=== PATIENT | male | born 1955 ===

== ENCOUNTER 2021-10-24 08:27 | Emergency (ER) | payer SELFPAY ==
[2021-10-24] MEDS ORDERED: ALBUTEROL 2.5 MG/3 ML NEBU IH ONE (09:00)
--- NOTE | 2021-10-24 11:15 | Emergency Department Report ---
HPI - General Chief Complaint: Dyspnea/Respdistress Time Seen by Provider: 10/24/21 11:04 - HPI HPI: 66-year-old male comes in complaining of shortness of breath. Has been having shortness of breath ever since he got infected with COVID about a year ago. He has been put on albuterol nebulizers and inhalers and has used about 5 episodes since it started getting worse yesterday. Reports a green sputum productive cough. He denies fevers vomiting diarrhea chills chest pain or any other associated symptoms. The albuterol MDI and nebulizers are helping but not enough. Exertion makes it worse. He does not use oxygen at home. He otherwise has a history for borderline high blood pressure and he takes no medicines. ED Past Medical Hx - Past Medical History Previous Medical History?: No Hx Hypertension: Yes - Surgical History Past Surgical History?: No - Social History Smoking Status: Never Smoker - Medications Home Medications: Home Medications Medication Instructions Recorded Confirmed Last Taken Type Azithromycin [Zithromax Z-JONNY] 250 mg PO DAILY #6 tab 10/24/21 Unknown Rx predniSONE [Deltasone] 50 mg PO QDAY 5 Days #5 tab 10/24/21 Unknown Rx ED Review of Systems ROS: Stated complaint: AMANDA X 12HRS Other details as noted in HPI Other: Review of Systems: Constitutional: Negative for chills, diaphoresis and fever. HENT: Negative for sore throat. Eyes: Negative for discharge and redness. Respiratory: Negative for cough, choking and shortness of breath. Cardiovascular:Negaitive for chest pain. Negative for palpitations and leg swelling. Gastrointestinal: Negative for abdominal pain, constipation, diarrhea, nausea and vomiting. Genitourinary: Negative for dysuria and hematuria. Musculoskeletal: Negative for arthralgias, back pain, myalgias and neck pain. Skin: Negative for rash and wound. Neurological: Negative for dizziness and headaches. Psychiatric/Behavioral: Negative for suicidal ideas. All other systems reviewed and are negative. Physical Exam - Physical Exam Vital Signs: Vital Signs 10/24/21 10/24/21 10/24/21 08:48 09:54 10:50 Temperature 99.7 F H 98.9 F Pulse Rate 111 H 80 Pulse Rate [ 98 H Bilateral] Respiratory 26 H 18 Rate Respiratory 18 Rate [Bilateral ] Blood Pressure 114/60 Blood Pressure 146/80 [Right] O2 Sat by Pulse 90 99 Oximetry Physical Exam: Physical Exam: Constitutional: AAOX3. No acute distress. No diaphoresis. He is saturating at 90% on room air. 95% on 3 L nasal cannula. HENT: Normocephalic. Pupils equal and reactive. No throat edema or erythema. Neck: No neck rigidity or tenderness. Cardiovascular: Heart sounds: No murmur. Normal rate and regular rhythm. Pulses: Intact distal pulses. Lungs: The patient has a prolonged expiratory phase with wheezing. Chest wall: No tenderness. Abdominal: No distension. No mass/pulsatile mass. No abdominal tenderness, guarding nor rebound. Musculoskeletal: Normal range of motion. No edema, No calf TTP. Skin: Warm and dry. Neurological: Alert and oriented to person, place, and time. Psychiatric: Mood and affect normal. Normal cognition and memory. Normal judgement. ED Course Vital Signs 10/24/21 10/24/21 10/24/21 08:48 09:54 10:50 Temperature 99.7 F H 98.9 F Pulse Rate 111 H 80 Pulse Rate [ 98 H Bilateral] Respiratory 26 H 18 Rate Respiratory 18 Rate [Bilateral ] Blood Pressure 114/60 Blood Pressure 146/80 [Right] O2 Sat by Pulse 90 99 Oximetry - Reevaluation(s) Reevaluation #1: 10/24/21 14:15 EKG done at 1054 shows a rate of 72, normal. The rhythm is sinus rhythm, normal. There are no ST or T wave abnormalities. Reevaluation #2: 10/24/21 15:47 We gave the patient 125 mg Solu-Medrol as well as 1 DuoNeb. He felt better afterwards however he still wheezing and saturating 92% on room air. I think he is stable for discharge but I will put him on prednisone for 5 days and he will continue to use his nebulizers every 4 hours as opposed to every 6. He will return if any other issues arise. ED Medical Decision Making - Lab Data Result diagrams: 10/24/21 11:16 10/24/21 11:16 Critical care attestation.: If time is entered above; I have spent that time in minutes in the direct care of this critically ill patient, excluding procedure time. ED Disposition Clinical Impression: Acute bronchitis Disposition: 01 HOME / SELF CARE / HOMELESS Is pt being admited?: No Does the pt Need Aspirin: No Condition: Stable Instructions: Acute Bronchitis (ED), Acute Bronchitis, Adult, [id number] Prescriptions: predniSONE [Deltasone] 50 mg PO QDAY 5 Days #5 tab Azithromycin [Zithromax Z-JONNY] 250 mg PO DAILY #6 tab Referrals: PRIMARY CARE,MD [Primary Care Provider] - 3-5 Days Time of Disposition: 15:50 Print Language: PAK[place]ANI
[2021-10-24 11:33] LABS: Basophils # (Auto) 0.1 K/mm3 (0.0-0.1); Basophils % (Auto) 1.2 % (0.0-1.8); Eosinophils # (Auto) 0.2 K/mm3 (0.0-0.4); Eosinophils % (Auto) 1.6 % (0.0-4.3); Hematocrit 47.3 % (35.5-45.6); Hemoglobin 15.7 gm/dl (11.8-15.2); Lymphocytes # (Auto) 2.5 K/mm3 (1.2-5.4); Lymphocytes % (Auto) 26.6 % (13.4-35.0); Mean Corpuscular HGB Conc 33 % (32-34); Mean Corpuscular Volume 88 fl (84-94); Monocytes # (Auto) 0.6 K/mm3 (0.0-0.8); Monocytes % (Auto) 6.8 % (0.0-7.3); Platelet Count 265 K/mm3 (140-440); Red Blood Count 5.35 M/mm3 (3.65-5.03); Red Cell Distribution Width 14.5 % (13.2-15.2)
--- NOTE | 2021-10-24 11:33 | XRay Report ---
CHEST 1 VIEW INDICATION: sob. COMPARISON: None FINDINGS: SUPPORT DEVICES: None. HEART: Within normal limits. LUNGS/PLEURA: No acute air space or interstitial disease. ADDITIONAL FINDINGS: None. IMPRESSION: 1. No acute findings. Signer Name: Williams Finch MD Signed: 10/24/2021 11:28 AM Workstation Name: [id number]
[2021-10-24 11:46] LABS: INR 0.95 (0.87-1.13)
[2021-10-24 11:47] LABS: Partial Thromboplastin Time 25.5 Sec. (24.2-36.6)
[2021-10-24 11:52] LABS: Alanine Aminotransferase 17 units/L (7-56); Albumin 4.7 g/dL (3.9-5); Blood Urea Nitrogen 17 mg/dL (9-20); Calcium 9.2 mg/dL (8.4-10.2); Hemolysis Index 10
[2021-10-24 11:53] LABS: BUN/Creatinine Ratio 28
[2021-10-24] MEDS ORDERED: methylPREDNISolone Sod Suc 125 MG in SODIUM CHLORIDE 0.9% 100 ML IV ONE (14:14)
[2021-10-24] MEDS ORDERED: IPRATROPIUM/ALBUTEROL SULFATE 3 ML AMPUL.NEB IH ONE (14:14)
[2021-10-24 17:49] VITALS: BP 120/65
== END 2021-10-24 17:46 | disposition home or self-care (01) ==
LOC: ED 08:27
DX: J20.9 Acute bronchitis, unspecified (principal); I10 Essential (primary) hypertension
CPT/HCPCS: 36415; 71045; 80053; 84484; 85025; 85610; 85730; 93005; 94640; 96365; 99284; J2930; 94644

== ENCOUNTER 2021-11-03 15:15 | Inpatient (IN) | payer SELFPAY ==
[2021-11-03] MEDS ORDERED: IPRATROPIUM 0.02% NEBU 2.5 ML IH ONE (15:45)
[2021-11-03] MEDS ORDERED: ALBUTEROL 2.5 MG/3 ML NEBU IH ONE (15:45)
[2021-11-03] MEDS: IPRATROPIUM 0.02% NEBU 2.5 ML IH ONE ×2 (15:55→17:35)
[2021-11-03] MEDS: ALBUTEROL 2.5 MG/3 ML NEBU IH ONE ×2 (15:56→17:35)
[2021-11-03] MEDS ORDERED: LORazepam 2 MG/ML VIAL IV ONE (16:04)
[2021-11-03] MEDS ORDERED: MAGNESIUM SULFATE 2 GM/50 ML BAG IV ONE (16:04)
[2021-11-03] MEDS ORDERED: methylPREDNISolone Sod Succinate 125 MG/2 ML INJ IV ONE (16:04)
--- NOTE | 2021-11-03 16:13 | Emergency Department Report ---
ED Shortness of Breath HPI - General Chief Complaint: Dyspnea/Respdistress Stated Complaint: ASTHMA ATTACK Time Seen by Provider: 11/03/21 16:00 Source: patient, family Mode of arrival: Ambulatory Limitations: No Limitations - History of Present Illness Initial Comments: 66-year-old male with a history of asthma who presents with difficulty breathing that been going on for the last 3 days progressively getting worse. He says he has use his home rescue medication which minimal improvement. Patient denies any productive cough. No fever or chills reported no chest pain or palpitation noted. No other modifying or associated factors reported. MD Complaint: shortness of breath, "asthma attack" - Related Data Previous Rx's Medication Instructions Recorded Last Taken Type Azithromycin [Zithromax Z-JONNY] 250 mg PO DAILY #6 tab 10/24/21 Unknown Rx predniSONE [Deltasone] 50 mg PO QDAY 5 Days #5 tab 10/24/21 Unknown Rx Allergies Allergy/AdvReac Type Severity Reaction Status Date / Time No Known Allergies Allergy Unverified 10/24/21 14:39 ED Review of Systems ROS: Stated complaint: ASTHMA ATTACK Other details as noted in HPI Comment: All other systems reviewed and negative Respiratory: shortness of breath, SOB with exertion, SOB at rest ED Past Medical Hx - Past Medical History Previous Medical History?: Yes Hx Hypertension: Yes Hx Asthma: Yes - Surgical History Past Surgical History?: No - Social History Smoking Status: Never Smoker - Medications Home Medications: Home Medications Medication Instructions Recorded Confirmed Last Taken Type Azithromycin [Zithromax Z-JONNY] 250 mg PO DAILY #6 tab 10/24/21 Unknown Rx predniSONE [Deltasone] 50 mg PO QDAY 5 Days #5 tab 10/24/21 Unknown Rx ED Physical Exam - General Limitations: No Limitations General appearance: alert, anxious, in distress (Due to shortness of breath) - Head Head exam: Present: normal inspection - Eye Eye exam: Present: normal appearance Pupils: Present: normal accommodation - ENT ENT exam: Present: normal exam, normal orophraynx, mucous membranes moist - Neck Neck exam: Present: normal inspection. Absent: tenderness - Respiratory Respiratory exam: Present: normal lung sounds bilaterally, respiratory distress, wheezes, accessory muscle use - Cardiovascular Cardiovascular Exam: Present: tachycardia, normal heart sounds - GI/Abdominal GI/Abdominal exam: Present: soft, normal bowel sounds. Absent: distended, tenderness - Extremities Exam Extremities exam: Present: normal inspection. Absent: tenderness, normal capillary refill, pedal edema - Back Exam Back exam: Absent: tenderness - Neurological Exam Neurological exam: Present: alert, oriented X3 - Psychiatric Psychiatric exam: Present: normal affect, normal mood - Skin Skin exam: Present: warm, normal color ED Course Vital Signs 11/03/21 11/03/21 11/03/21 15:21 15:55 17:10 Temperature 97.5 F L Pulse Rate 139 H 105 H Pulse Rate [ 139 H Anterior Bilateral Throughout] Respiratory 26 H 36 H Rate Respiratory 31 H Rate [Anterior Bilateral Throughout] Blood Pressure Blood Pressure 121/71 [Right] O2 Sat by Pulse 88 94 Oximetry 11/03/21 11/03/21 11/03/21 17:15 17:31 17:35 Temperature Pulse Rate 137 H 131 H Pulse Rate [ 128 H Anterior Bilateral Throughout] Respiratory 35 H 43 H Rate Respiratory 30 H Rate [Anterior Bilateral Throughout] Blood Pressure 90/61 103/64 Blood Pressure [Right] O2 Sat by Pulse 94 96 Oximetry 11/03/21 11/03/21 11/03/21 17:45 18:01 18:15 Temperature Pulse Rate 126 H 134 H 135 H Pulse Rate [ Anterior Bilateral Throughout] Respiratory 43 H 24 29 H Rate Respiratory Rate [Anterior Bilateral Throughout] Blood Pressure 109/63 112/67 114/60 Blood Pressure [Right] O2 Sat by Pulse 97 94 94 Oximetry 11/03/21 11/03/21 11/03/21 18:19 18:31 18:45 Temperature Pulse Rate 134 H 139 H 137 H Pulse Rate [ Anterior Bilateral Throughout] Respiratory 30 H 30 H Rate Respiratory Rate [Anterior Bilateral Throughout] Blood Pressure 114/60 106/61 Blood Pressure [Right] O2 Sat by Pulse 94 94 Oximetry 11/03/21 11/03/21 11/03/21 19:01 19:15 19:31 Temperature Pulse Rate 134 H 129 H 127 H Pulse Rate [ Anterior Bilateral Throughout] Respiratory 27 H 26 H 19 Rate Respiratory Rate [Anterior Bilateral Throughout] Blood Pressure 98/57 91/52 88/55 Blood Pressure [Right] O2 Sat by Pulse 94 94 93 Oximetry 11/03/21 11/03/21 11/03/21 19:46 20:01 20:15 Temperature Pulse Rate 127 H 121 H 120 H Pulse Rate [ Anterior Bilateral Throughout] Respiratory 26 H 29 H 30 H Rate Respiratory Rate [Anterior Bilateral Throughout] Blood Pressure 97/54 90/60 97/54 Blood Pressure [Right] O2 Sat by Pulse 94 95 94 Oximetry 11/03/21 11/03/21 11/03/21 20:21 20:31 20:45 Temperature Pulse Rate 116 H 115 H Pulse Rate [ Anterior Bilateral Throughout] Respiratory 33 H 19 Rate Respiratory Rate [Anterior Bilateral Throughout] Blood Pressure 84/34 84/34 Blood Pressure [Right] O2 Sat by Pulse 93 94 95 Oximetry 11/03/21 11/03/21 20:59 21:01 Temperature Pulse Rate 114 H Pulse Rate [ Anterior Bilateral Throughout] Respiratory 30 H Rate Respiratory Rate [Anterior Bilateral Throughout] Blood Pressure 109/64 Blood Pressure 109/64 [Right] O2 Sat by Pulse 95 Oximetry - Reevaluation(s) Reevaluation #1: 11/03/21 16:09 Patient presented with difficulty breathing for the last 3 days progressively getting worse with history of asthma--noted with diffuse expiratory wheezing, anxiety/panic attack, tachycardia and tachypneic --differential diagnosis could include but not limited to asthma exacerbation, myocardial infarction, pulmonary embolism, pneumonia, pneumothorax, COVID-19, and any other systemic infection or electrolyte derangement. In order to rule or the above out we will go ahead and order routine dyspnea work-up including chest x-ray, cardiac enzyme troponin, CBC, CMP. And in the meantime we will go ahead and give DuoNeb breathing treatment, Solu-Medrol 125 mg, magnesium sulfate 2 g, Ativan 1 mg IV x1 for anxiety and will continue to monitor patient. Reevaluation #2: 11/03/21 21:50 Noted with unremarkable blood gas with normal pH but elevated D-dimer so we will go ahead and order CT chest to rule out pulmonary embolism. Also noted with incremental increase in lactic acid at 1 from 2.0-3.4 but no source of infection at this point. We will give 1 L IV fluids for hydration and continue to monitor patient Reevaluation #3: 11/03/21 21:51 Patient continued to be tachycardic likely as a result of the albuterol side effect and still needing oxygen so we will go ahead and consider admission. Dr. Carter consulted who accept pt for further evaluation and treatment. 11/03/21 21:52 Patient also have slightly elevated T bili with normal LFT. This is unlikely biliary tree obstruction - Consultations Consultation #1: 11/03/21 21:53 Dr. Carter consulted who accept pt for further evaluation and treatment while waiting for result of CTA chest-- ED Medical Decision Making - Lab Data Result diagrams: 11/03/21 16:45 11/03/21 16:45 - EKG Data -: EKG Interpreted by Me EKG shows normal: sinus rhythm Rate: tachycardia - EKG Data 11/03/21 16:13 Initial EKG noted with sinus tachycardia at a rate of 137 bpm, normal QTC with no obvious ST elevation or depression in this abnormal ECG. - Medical Decision Making See progress notes for details - Differential Diagnosis See previous notes for details Critical Care Time: Yes (60 minutes) Critical care time in (mins) excluding proc time.: 60 Critical care attestation.: If time is entered above; I have spent that time in minutes in the direct care of this critically ill patient, excluding procedure time. This patient presents with acute tachycardia and tachypneic with diffuse large wheezing and due to high probability of clinically significant, life threatening deterioration, this patient required my highest level of preparedness to intervene emergently and I personally spent this critical care time directly and personally managing this patient. This critical care time included obtaining a history; examining this patient; pulse oximetry ; ordering and review of studies ; arranging urgent treatment with development of a management plan ; evaluation of patient's response to treatment ; frequent reassessment ; and, discussion with other providers. This critical care time was performed to assess and manage the high probability of imminent, life-threatening deterioration that could result in multiple organ damage if not done in a timely fashion. Critical Care Time: 60 ED Disposition Clinical Impression: Asthma exacerbation Qualifiers: Asthma severity: severe Asthma persistence: unspecified Qualified Code(s): J45.901 - Unspecified asthma with (acute) exacerbation Disposition: 09 ADMITTED INPATIENT Is pt being admited?: Yes Does the pt Need Aspirin: No Condition: Serious Time of Disposition: 21:53 (Dr Carter consulted who accept pt)
--- NOTE | 2021-11-03 16:39 | XRay Report ---
XR chest 1V ap INDICATION / CLINICAL INFORMATION: Dyspnea COMPARISON: Oct 24 2021 FINDINGS: SUPPORT DEVICES: None. HEART / MEDIASTINUM: No significant abnormality. LUNGS / PLEURA: Lungs are clear. Costophrenic sulci are sharp. No pneumothorax. ADDITIONAL FINDINGS: No significant additional findings. IMPRESSION: 1. No acute findings. Signer Name: Bhavin Dewey MD Signed: 11/03/2021 4:35 PM Workstation Name: [id number]
[2021-11-03] MEDS ORDERED: SODIUM CHLORIDE 0.9% 1000 ML 1,000 ML IV ONE (17:17)
[2021-11-03] MEDS ORDERED: SODIUM CHLORIDE 0.9% 1000 ML 1,000 ML ONE (17:19)
[2021-11-03 17:30] LABS: Basophils # (Auto) 0.1 K/mm3 (0.0-0.1); Basophils % (Auto) 0.5 % (0.0-1.8); Eosinophils % (Auto) 0.1 % (0.0-4.3); Hemoglobin 16.8 gm/dl (11.8-15.2); Lymphocytes # (Auto) 1.7 K/mm3 (1.2-5.4); Lymphocytes % (Auto) 10.9 % (13.4-35.0); Mean Corpuscular HGB Conc 34 % (32-34); Mean Corpuscular Volume 88 fl (84-94); Monocytes # (Auto) 1.8 K/mm3 (0.0-0.8); Monocytes % (Auto) 11.6 % (0.0-7.3); Platelet Count 249 K/mm3 (140-440); Red Blood Count 5.68 M/mm3 (3.65-5.03); Red Cell Distribution Width 14.3 % (13.2-15.2)
[2021-11-03 17:35] LABS: Alanine Aminotransferase 24 units/L (7-56); Albumin 4.4 g/dL (3.9-5); BUN/Creatinine Ratio 23; Blood Urea Nitrogen 21 mg/dL (9-20); Calcium 9.3 mg/dL (8.4-10.2); Hemolysis Index 6
[2021-11-03 17:38] LABS: ABG Base Excess -2.8 mmol/L (-2.0-3.0); ABG HCO3 22.5 mmol/L (20.0-26.0); ABG Methemoglobin 0.7 % (0.0-1.5); ABG Oxygen Saturation 98.9 % (95.0-99.0); ABG PH 7.357 pH Units (7.350-7.450); ABG PO2 161.9 mm Hg (80.0-90.0)
[2021-11-03 17:40] LABS: INR 0.97 (0.87-1.13); Partial Thromboplastin Time 27.3 Sec. (24.2-36.6)
[2021-11-03] MEDS ORDERED: MORPHINE 2 MG/1 ML INJ IV PRN (21:53)
[2021-11-03] MEDS ORDERED: ACETAMINOPHEN 325 MG TAB PO PRN (21:53)
[2021-11-03] MEDS ORDERED: ONDANSETRON 4 MG/2 ML INJ IV PRN (21:53)
[2021-11-03] MEDS ORDERED: MORPHINE 4 MG/1 ML INJ IV PRN (21:53)
--- NOTE | 2021-11-03 21:58 | History and Physical Report ---
History of Present Illness Date of examination: 11/03/21 Date of admission: 11/03/21 Chief complaint: Shortness of breath Acute asthma exacerbation History of present illness: 66-year-old male with history of asthma was brought to the emergency room because of difficulty breathing that been going on for the last 3 days progressively getting worse. He says he has use his home rescue medication which minimal improvement. Patient denies any productive cough. No fever or chills reported no chest pain or palpitation noted. No other modifying or associated factors reported. In the emergency room patient is found to have acute asthma exacerbation. Chest x-ray shows no acute finding Past History Past Medical History: hypertension, other Past Surgical History: No surgical history (Asthma) Social history: no significant social history Family history: hypertension Medications and Allergies Allergies Allergy/AdvReac Type Severity Reaction Status Date / Time No Known Allergies Allergy Unverified 10/24/21 14:39 Home Medications Medication Instructions Recorded Confirmed Last Taken Type Azithromycin [Zithromax Z-JONNY] 250 mg PO DAILY #6 tab 10/24/21 Unknown Rx predniSONE [Deltasone] 50 mg PO QDAY 5 Days #5 tab 10/24/21 Unknown Rx Review of Systems All systems: negative Cardiovascular: shortness of breath, dyspnea on exertion Respiratory: cough, shortness of breath, dyspnea on exertion, wheezing Exam - Constitutional Vitals: Temp Pulse Resp BP Pulse Ox 97.5 F L 114 H 30 H 109/64 95 11/03/21 15:21 11/03/21 21:01 11/03/21 21:01 11/03/21 21:01 11/03/21 21:01 General appearance: Present: no acute distress, well-nourished - EENT Eyes: Present: PERRL ENT: hearing intact, clear oral mucosa - Neck Neck: Present: supple, normal ROM - Respiratory Respiratory effort: normal Respiratory: bilateral: wheezing - Cardiovascular Heart Sounds: Present: S1 & S2. Absent: rub, click - Extremities Extremities: pulses symmetrical, No edema Peripheral Pulses: within normal limits - Abdominal General gastrointestinal: Present: soft, non-tender, non-distended, normal bowel sounds Male genitourinary: Present: normal - Integumentary Integumentary: Present: clear, warm, dry - Musculoskeletal Musculoskeletal: gait normal, strength equal bilaterally - Psychiatric Psychiatric: appropriate mood/affect, intact judgment & insight - Neurologic Neurologic: CNII-XII intact, moves all extremities HEART Score - HEART Score Troponin: Troponin T < 0.010 ng/mL (0.00-0.029) 11/03/21 16:45 Results - Labs CBC & Chem 7: 11/03/21 16:45 11/03/21 16:45 Labs: Laboratory Last Values WBC 15.2 K/mm3 (4.5-11.0) H 11/03/21 16:45 RBC 5.68 M/mm3 (3.65-5.03) H 11/03/21 16:45 Hgb 16.8 gm/dl (11.8-15.2) H 11/03/21 16:45 Hct 50.0 % (35.5-45.6) H 11/03/21 16:45 MCV 88 fl (84-94) 11/03/21 16:45 MCH 30 pg (28-32) 11/03/21 16:45 MCHC 34 % (32-34) 11/03/21 16:45 RDW 14.3 % (13.2-15.2) 11/03/21 16:45 Plt Count 249 K/mm3 (140-440) 11/03/21 16:45 Lymph % (Auto) 10.9 % (13.4-35.0) L 11/03/21 16:45 [place] % (Auto) 11.6 % (0.0-7.3) H 11/03/21 16:45 Eos % (Auto) 0.1 % (0.0-4.3) 11/03/21 16:45 Baso % (Auto) 0.5 % (0.0-1.8) 11/03/21 16:45 Lymph # (Auto) 1.7 K/mm3 (1.2-5.4) 11/03/21 16:45 [place] # (Auto) 1.8 K/mm3 (0.0-0.8) H 11/03/21 16:45 Eos # (Auto) 0.0 K/mm3 (0.0-0.4) 11/03/21 16:45 Baso # (Auto) 0.1 K/mm3 (0.0-0.1) 11/03/21 16:45 Seg Neutrophils % 76.9 % (40.0-70.0) H 11/03/21 16:45 Seg Neutrophils # 11.7 K/mm3 (1.8-7.7) H 11/03/21 16:45 PT 13.9 Sec. (12.2-14.9) 11/03/21 16:45 INR 0.97 (0.87-1.13) 11/03/21 16:45 APTT 27.3 Sec. (24.2-36.6) 11/03/21 16:45 D-Dimer 286.27 ng/mlDDU (0-234) H 11/03/21 19:02 ABG pH 7.357 pH Units (7.350-7.450) 11/03/21 17:25 ABG pCO2 41.0 mm Hg 11/03/21 17:25 ABG pO2 161.9 mm Hg (80.0-90.0) H 11/03/21 17:25 ABG HCO3 22.5 mmol/L (20.0-26.0) 11/03/21 17:25 ABG O2 Saturation 98.9 % (95.0-99.0) 11/03/21 17:25 ABG O2 Content 23.5 (0.0-44) 11/03/21 17:25 ABG Base Excess -2.8 mmol/L (-2.0-3.0) L 11/03/21 17:25 ABG Hemoglobin 17.1 gm/dl (14.0-18.0) 11/03/21 17:25 ABG Carboxyhemoglobin 1.6 % (0.0-5.0) 11/03/21 17:25 ABG Methemoglobin 0.7 % (0.0-1.5) 11/03/21 17:25 Oxyhemoglobin 96.7 % (95.0-99.0) 11/03/21 17:25 FiO2 50 % 11/03/21 17:25 Sodium 131 mmol/L (137-145) L 11/03/21 16:45 Potassium 4.5 mmol/L (3.6-5.0) 11/03/21 16:45 Chloride 93.6 mmol/L (98-107) L 11/03/21 16:45 Carbon Dioxide 22 mmol/L (22-30) 11/03/21 16:45 Anion Gap 20 mmol/L 11/03/21 16:45 BUN 21 mg/dL (9-20) H 11/03/21 16:45 Creatinine 0.9 mg/dL (0.8-1.3) 11/03/21 16:45 Estimated GFR > 60 ml/min 11/03/21 16:45 BUN/Creatinine Ratio 23 % 11/03/21 16:45 Glucose 137 mg/dL (75-100) H 11/03/21 16:45 Lactic Acid 4.00 mmol/L (0.7-2.0) H* 11/03/21 20:20 Calcium 9.3 mg/dL (8.4-10.2) 11/03/21 16:45 Total Bilirubin 2.00 mg/dL (0.1-1.2) H 11/03/21 16:45 AST 22 units/L (5-40) 11/03/21 16:45 ALT 24 units/L (7-56) 11/03/21 16:45 Alkaline Phosphatase 81 units/L (35-129) 11/03/21 16:45 Troponin T < 0.010 ng/mL (0.00-0.029) 11/03/21 16:45 Total Protein 8.2 g/dL (6.3-8.2) 11/03/21 16:45 Albumin 4.4 g/dL (3.9-5) 11/03/21 16:45 Albumin/Globulin Ratio 1.2 % 11/03/21 16:45 - Imaging and Cardiology Chest x-ray: report reviewed Assessment and Plan VTE prophylaxis?: Chemical Plan of care discussed with patient/family: Yes - Patient Problems (1) Acute asthma exacerbation Current Visit: Yes Status: Acute Plan to address problem: Admit the patient to the medical telemetry. Oxygen by nasal cannula vp ad products and planning pulmonate. DuoNeb nebulizer every 4 hours. Albuterol via nebulizer every 4 hours as needed. Solu-Medrol 40 mg IV every 6 hours. Singular 10 mg p.o. daily. Blood cultures sputum culture. Follow the CT scan of the chest. (2) Hypertension Current Visit: Yes Status: Acute Plan to address problem: Hydralazine 10 mg IV every 6 hours as needed. We will continue the home medication (3) DVT prophylaxis Current Visit: Yes Status: Acute Plan to address problem: Heparin 5000 units subcu every 12 hours for DVT prophylaxis. Pepcid 20 mg p.o. twice daily for GI prophylaxis. Patient is a full code
--- NOTE | 2021-11-03 22:46 | Cat Scan Report ---
CTA CHEST WITH CONTRAST INDICATION / CLINICAL INFORMATION: CP with elevated d-dimer. TECHNIQUE: Axial CT images were obtained through the chest after injection of 100 cc Omni 350 IV cont rast. 3 plane MIP and/or 3D reconstructions were produced. All CT scans at this location are performe d using CT dose reduction for ALARA by means of automated exposure control. COMPARISON: None available. FINDINGS: PULMONARY EMBOLUS: None. THORACIC AORTA: No significant abnormality. HEART: No significant abnormality. CORONARY ARTERY CALCIFICATION: Absent -- None. MEDIASTINUM / JENI: No significant abnormality. PLEURA: No pleural effusion. No pneumothorax. LUNGS: No acute air space or interstitial disease. Calcified right lower lobe granuloma. ADDITIONAL FINDINGS: None. UPPER ABDOMEN: No acute findings. SKELETAL STRUCTURES: No significant osseous abnormality. IMPRESSION: 1. No CT evidence for pulmonary embolism. 2. No acute findings. Signer Name: Doe Batista MD Signed: 11/03/2021 10:42 PM Workstation Name: [id number]
[2021-11-04] MEDS: HEPARIN 5,000 UNIT/1 ML VIAL SUB-Q SCH ×3 (00:47→22:35)
[2021-11-04] MEDS: MONTELUKAST 10 MG TAB PO SCH ×2 (00:48→22:35)
[2021-11-04] MEDS: FAMOTIDINE 20 MG TAB PO SCH ×3 (00:48→22:35)
[2021-11-04] MEDS: methylPREDNISolone Sod Succinate 40 MG/1 ML INJ IV SCH ×2 (00:49→05:50)
[2021-11-04] MEDS: IPRATROPIUM/ALBUTEROL SULFATE 3 ML AMPUL.NEB IH SCH ×4 (05:12→20:03)
[2021-11-04 05:26] LABS: Hematocrit 47.1 % (35.5-45.6); Hemoglobin 15.8 gm/dl (11.8-15.2); Mean Corpuscular HGB Conc 34 % (32-34); Mean Corpuscular Volume 89 fl (84-94); Platelet Count 219 K/mm3 (140-440); Red Blood Count 5.31 M/mm3 (3.65-5.03); Red Cell Distribution Width 14.3 % (13.2-15.2)
[2021-11-04 05:40] LABS: BUN/Creatinine Ratio 34; Blood Urea Nitrogen 27 mg/dL (9-20); Calcium 8.9 mg/dL (8.4-10.2); Hemolysis Index 12
[2021-11-04] MEDS: ALBUTEROL 2.5 MG/3 ML NEBU IH PRN ×2 (05:55→20:02)
[2021-11-04 06:24] LABS: Basophils % (Manual) 0 % (0.0-1.8); Eosinophils % (Manual) 0 % (0.0-4.3); Monocytes % (Manual) 0 % (0.0-7.3); Total Cells Counted 100
[2021-11-04 06:25] LABS: Platelet Estimate Consistent w Auto; RBC Morphology Normal
[2021-11-04] MEDS ORDERED: MAGNESIUM SULFATE 2 GM in SODIUM CHLORIDE 0.9% 50 ML IV ONE (10:30)
--- NOTE | 2021-11-04 11:16 | Progress Note ---
Assessment and Plan Assessment and plan: 66-year-old male with history of asthma was brought to the emergency room because of difficulty breathing that been going on for the last 3 days progressively getting worse. He says he has use his home rescue medication which minimal improvement. Patient denies any productive cough. No fever or chills reported no chest pain or palpitation noted. No other modifying or associated factors reported. In the emergency room patient is found to have acute asthma exacerbation. 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 DuoNeb nebulizer every 4 hours. Albuterol via nebulizer every 4 hours as needed. Add LABA, Singular 10 mg p.o. daily. Blood cultures sputum culture. Follow the CT scan of the chest. (2) Hypertension Current Visit: Yes Status: Acute Plan to address problem: Hydralazine 10 mg IV every 6 hours as needed. We will continue the home medication (3)Acute Hypoxic Respiratory failure (4)DVT prophylaxis Current Visit: Yes Status: Acute Plan to address problem: Heparin 5000 units subcu every 12 hours for DVT prophylaxis. Pepcid 20 mg p.o. twice daily for GI prophylaxis. Patient is a full code Discussed with family The high probability of a clinically significant, sudden or life threatening deterioration of the [Pulmonary] system(s) required my full and direct attention, intervention and personal management. The aggregate critical care time was [35] minutes. This time is in addition to time spent performing reported procedures but includes the following: [x] Data Review and interpretation [x] Patient assessment and monitoring of vital signs [x] Documentation [x] Medication orders and management History Interval history: Patient seen and examined this morning continues Venturi mask with very minimal air entry family at bedside. He is able to complete his sentences but with increased work of breathing and accessory muscle use. Hospitalist Physical - Physical exam Narrative exam: VITAL SIGNS: Reviewed. GENERAL: The patient appears normally developed, Vital signs as documented. HEAD: No signs of head trauma. EYES: Pupils are equal. Extraocular motions intact. EARS: Hearing grossly intact. MOUTH: Oropharynx is normal. NECK: No adenopathy, no JVD. CHEST: Chest with diminished with mild expiratory wheeze breath sounds bilaterally. No rales, or rhonchi. CARDIAC: Regular rate and rhythm. S1 and S2, without murmurs, gallops, or rubs. VASCULAR: No Edema. Peripheral pulses normal and equal in all extremities. ABDOMEN: Soft, non tender and non distended. No rebound or guarding, and no masses palpated. Bowel Sounds normal. MUSCULOSKELETAL: Good range of motion of all major joints. Extremities without clubbing, cyanosis or edema. NEUROLOGIC EXAM: Alert and oriented x 3 No focal sensory or strength deficits. Speech normal. Follows commands. PSYCHIATRIC: Mood normal. SKIN: detail exam as documented in skin assessment - Constitutional Vitals: Temp Pulse Resp BP Pulse Ox 97.8 F 108 H 20 113/78 95 11/04/21 08:02 11/04/21 09:40 11/04/21 09:40 11/04/21 09:04 11/04/21 09:43 General appearance: Present: no acute distress, well-nourished HEART Score - HEART Score Troponin: Troponin T < 0.010 ng/mL (0.00-0.029) 11/03/21 16:45 Results - Labs CBC & Chem 7: 11/04/21 05:06 11/04/21 05:06 Labs: Laboratory Last Values WBC 11.3 K/mm3 (4.5-11.0) H 11/04/21 05:06 RBC 5.31 M/mm3 (3.65-5.03) H 11/04/21 05:06 Hgb 15.8 gm/dl (11.8-15.2) H 11/04/21 05:06 Hct 47.1 % (35.5-45.6) H 11/04/21 05:06 MCV 89 fl (84-94) 11/04/21 05:06 MCH 30 pg (28-32) 11/04/21 05:06 MCHC 34 % (32-34) 11/04/21 05:06 RDW 14.3 % (13.2-15.2) 11/04/21 05:06 Plt Count 219 K/mm3 (140-440) 11/04/21 05:06 Lymph % (Auto) 10.9 % (13.4-35.0) L 11/03/21 16:45 [place] % (Auto) 11.6 % (0.0-7.3) H 11/03/21 16:45 Eos % (Auto) 0.1 % (0.0-4.3) 11/03/21 16:45 Baso % (Auto) 0.5 % (0.0-1.8) 11/03/21 16:45 Lymph # (Auto) 1.7 K/mm3 (1.2-5.4) 11/03/21 16:45 [place] # (Auto) 1.8 K/mm3 (0.0-0.8) H 11/03/21 16:45 Eos # (Auto) 0.0 K/mm3 (0.0-0.4) 11/03/21 16:45 Baso # (Auto) 0.1 K/mm3 (0.0-0.1) 11/03/21 16:45 Add Manual Diff Complete 11/04/21 05:06 Total Counted 100 11/04/21 05:06 Seg Neutrophils % Workforce Management Analyst 11/04/21 05:06 Seg Neuts % (Manual) 93.0 % (40.0-70.0) H 11/04/21 05:06 Band Neutrophils % 0 % 11/04/21 05:06 Lymphocytes % (Manual) 7.0 % (13.4-35.0) L 11/04/21 05:06 Reactive Lymphs % (Man) 0 % 11/04/21 05:06 Monocytes % (Manual) 0 % (0.0-7.3) 11/04/21 05:06 Eosinophils % (Manual) 0 % (0.0-4.3) 11/04/21 05:06 Basophils % (Manual) 0 % (0.0-1.8) 11/04/21 05:06 Metamyelocytes % 0 % 11/04/21 05:06 Myelocytes % 0 % 11/04/21 05:06 Promyelocytes % 0 % 11/04/21 05:06 Blast Cells % 0 % 11/04/21 05:06 Nucleated RBC % Not Reportable 11/04/21 05:06 Seg Neutrophils # 11.7 K/mm3 (1.8-7.7) H 11/03/21 16:45 Seg Neutrophils # Man 10.5 K/mm3 (1.8-7.7) H 11/04/21 05:06 Band Neutrophils # 0.0 K/mm3 11/04/21 05:06 Lymphocytes # (Manual) 0.8 K/mm3 (1.2-5.4) L 11/04/21 05:06 Abs React Lymphs (Man) 0.0 K/mm3 11/04/21 05:06 Monocytes # (Manual) 0.0 K/mm3 (0.0-0.8) 11/04/21 05:06 Eosinophils # (Manual) 0.0 K/mm3 (0.0-0.4) 11/04/21 05:06 Basophils # (Manual) 0.0 K/mm3 (0.0-0.1) 11/04/21 05:06 Metamyelocytes # 0.0 K/mm3 11/04/21 05:06 Myelocytes # 0.0 K/mm3 11/04/21 05:06 Promyelocytes # 0.0 K/mm3 11/04/21 05:06 Blast Cells # 0.0 K/mm3 11/04/21 05:06 WBC Morphology Not Reportable 11/04/21 05:06 Hypersegmented Neuts Not Reportable 11/04/21 05:06 Hyposegmented Neuts Not Reportable 11/04/21 05:06 Hypogranular Neuts Not Reportable 11/04/21 05:06 Smudge Cells Not Reportable 11/04/21 05:06 Toxic Granulation Not Reportable 11/04/21 05:06 Toxic Vacuolation Not Reportable 11/04/21 05:06 Dohle Bodies Not Reportable 11/04/21 05:06 Pelger-Huet Anomaly Not Reportable 11/04/21 05:06 Kenia Rods Not Reportable 11/04/21 05:06 Platelet Estimate Consistent w auto 11/04/21 05:06 Clumped Platelets Not Reportable 11/04/21 05:06 Plt Clumps, EDTA Not Reportable 11/04/21 05:06 Large Platelets Not Reportable 11/04/21 05:06 Giant Platelets Not Reportable 11/04/21 05:06 Platelet Satelliting Not Reportable 11/04/21 05:06 Plt Morphology Comment Not Reportable 11/04/21 05:06 RBC Morphology Normal 11/04/21 05:06 Dimorphic RBCs Not Reportable 11/04/21 05:06 Polychromasia Not Reportable 11/04/21 05:06 Hypochromasia Not Reportable 11/04/21 05:06 Poikilocytosis Not Reportable 11/04/21 05:06 Anisocytosis Not Reportable 11/04/21 05:06 Microcytosis Not Reportable 11/04/21 05:06 Macrocytosis Not Reportable 11/04/21 05:06 Spherocytes Not Reportable 11/04/21 05:06 Pappenheimer Bodies Not Reportable 11/04/21 05:06 Sickle Cells Not Reportable 11/04/21 05:06 Target Cells Not Reportable 11/04/21 05:06 Tear Drop Cells Not Reportable 11/04/21 05:06 Ovalocytes Not Reportable 11/04/21 05:06 Helmet Cells Not Reportable 11/04/21 05:06 [place] Bodies Not Reportable 11/04/21 05:06 Nesbit Rings Not Reportable 11/04/21 05:06 [place] Cells Not Reportable 11/04/21 05:06 Bite Cells Not Reportable 11/04/21 05:06 Crenated Cell Not Reportable 11/04/21 05:06 Elliptocytes Not Reportable 11/04/21 05:06 Acanthocytes (Spur) Not Reportable 11/04/21 05:06 Rouleaux Not Reportable 11/04/21 05:06 Hemoglobin C Crystals Not Reportable 11/04/21 05:06 Schistocytes Not Reportable 11/04/21 05:06 Malaria parasites Not Reportable 11/04/21 05:06 Tim[place]o Bodies Not Reportable 11/04/21 05:06 Hem Pathologist Commnt No 11/04/21 05:06 PT 13.9 Sec. (12.2-14.9) 11/03/21 16:45 INR 0.97 (0.87-1.13) 11/03/21 16:45 APTT 27.3 Sec. (24.2-36.6) 11/03/21 16:45 D-Dimer 286.27 ng/mlDDU (0-234) H 11/03/21 19:02 ABG pH 7.357 pH Units (7.350-7.450) 11/03/21 17:25 ABG pCO2 41.0 mm Hg 11/03/21 17:25 ABG pO2 161.9 mm Hg (80.0-90.0) H 11/03/21 17:25 ABG HCO3 22.5 mmol/L (20.0-26.0) 11/03/21 17:25 ABG O2 Saturation 98.9 % (95.0-99.0) 11/03/21 17:25 ABG O2 Content 23.5 (0.0-44) 11/03/21 17:25 ABG Base Excess -2.8 mmol/L (-2.0-3.0) L 11/03/21 17:25 ABG Hemoglobin 17.1 gm/dl (14.0-18.0) 11/03/21 17:25 ABG Carboxyhemoglobin 1.6 % (0.0-5.0) 11/03/21 17: ABG Methemoglobin 0.7 % (0.0-1.5) 11/03/21 17:25 Oxyhemoglobin 96.7 % (95.0-99.0) 11/03/21 17:25 FiO2 50 % 11/03/21 17:25 Sodium 134 mmol/L (137-145) L 11/04/21 05:06 Potassium 4.9 mmol/L (3.6-5.0) 11/04/21 05:06 Chloride 97.9 mmol/L (98-107) L 11/04/21 05:06 Carbon Dioxide 21 mmol/L (22-30) L 11/04/21 05:06 Anion Gap 20 mmol/L 11/04/21 05:06 BUN 27 mg/dL (9-20) H 11/04/21 05:06 Creatinine 0.8 mg/dL (0.8-1.3) 11/04/21 05:06 Estimated GFR > 60 ml/min 11/04/21 05:06 BUN/Creatinine Ratio 34 % 11/04/21 05:06 Glucose 178 mg/dL (75-100) H 11/04/21 05:06 Lactic Acid 1.50 mmol/L (0.7-2.0) 11/04/21 05:06 Calcium 8.9 mg/dL (8.4-10.2) 11/04/21 05:06 Total Bilirubin 2.00 mg/dL (0.1-1.2) H 11/03/21 16:45 AST 22 units/L (5-40) 11/03/21 16:45 ALT 24 units/L (7-56) 11/03/21 16:45 Alkaline Phosphatase 81 units/L (35-129) 11/03/21 16:45 Troponin T < 0.010 ng/mL (0.00-0.029) 11/03/21 16:45 Total Protein 8.2 g/dL (6.3-8.2) 11/03/21 16:45 Albumin 4.4 g/dL (3.9-5) 11/03/21 16:45 Albumin/Globulin Ratio 1.2 % 11/03/21 16:45 Active Medications - Current Medications Current Medications: Generic Name Dose Route Start Last Admin Trade Name Freq PRN Reason Stop Dose Admin Acetaminophen 650 mg 11/03/21 21:53 Acetaminophen 325 Mg Tab PO Q4H PRN Pain MILD(1-3)/Fever >100.5/BOONE Albuterol 2.5 mg 11/03/21 21:53 11/04/21 05:55 Albuterol 2.5 Mg/3 Ml Nebu IH 2.5 mg Q3HRT PRN Administration Shortness Of Breath Albuterol/Ipratropium 1 ampul 11/04/21 02:00 11/04/21 09:39 Ipratropium/Albuterol Sulfate 3 Ml Ampul.Neb IH 1 ampul Q6HRT CHANA Administration Famotidine 20 mg 11/03/21 22:00 11/04/21 10:59 Famotidine 20 Mg Tab PO 20 mg BID CHANA Administration Heparin Sodium (Porcine) 5,000 unit 11/03/21 22:00 11/04/21 10:59 Heparin 5,000 Unit/1 Ml Vial SUB-Q 5,000 unit Q12HR CHANA Administration Magnesium Sulfate 2 gm/ Sodium 54 mls @ 52 mls/hr 11/04/21 10:30 11/04/21 10:58 Chloride IV 11/04/21 11:32 52 mls/hr ONCE ONE Administration Methylprednisolone Sodium Succinate 80 mg 11/04/21 14:00 Methylprednisolone Sod Succinate 125 Mg/2 Ml Inj IV Q8HR CHANA Montelukast Sodium 10 mg 11/03/21 22:00 11/04/21 00:48 Montelukast 10 Mg Tab PO 10 mg QHS CHANA Administration Morphine Sulfate 2 mg 11/03/21 21:53 Morphine 2 Mg/1 Ml Inj IV Q4H PRN Pain, Moderate (4-6) Morphine Sulfate 4 mg 11/03/21 21:53 Morphine 4 Mg/1 Ml Inj IV Q4H PRN Pain , Severe (7-10) Ondansetron HCl 4 mg 11/03/21 21:53 Ondansetron 4 Mg/2 Ml Inj IV Q8H PRN Nausea And Vomiting Sodium Chloride 10 ml 11/03/21 22:00 11/04/21 10:59 Sodium Chloride 0.9% 10 Ml Flush Syringe IV 10 ml BID CHANA Administration Sodium Chloride 10 ml 11/03/21 21:53 Sodium Chloride 0.9% 10 Ml Flush Syringe IV PRN PRN LINE FLUSH
--- NOTE | 2021-11-04 13:44 | Consultation ---
History of Present Illness History of present illness: 66 y/o male who does not speak lao admitted with acute respiratory failure secondary to asthma exacerbation. Takes Advair 250 and as needed albuterol but has not been able to afford these meds regularly. Does not smoke. 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 CAme to ED 8 days ago secondary to shortness of breath but was discharged. Friend/Family at bedside. Past History Past Medical History: hypertension, other Past Surgical History: No surgical history (Asthma) Social history: no significant social history Family history: hypertension Medications and Allergies Allergies Allergy/AdvReac Type Severity Reaction Status Date / Time No Known Allergies Allergy Unverified 10/24/21 14:39 Home Medications Medication Instructions Recorded Confirmed Last Taken Type Azithromycin [Zithromax Z-JONNY] 250 mg PO DAILY #6 tab 10/24/21 Unknown Rx predniSONE [Deltasone] 50 mg PO QDAY 5 Days #5 tab 10/24/21 Unknown Rx Active Meds: Active Medications Acetaminophen (Acetaminophen 325 Mg Tab) 650 mg PO Q4H PRN PRN Reason: Pain MILD(1-3)/Fever >100.5/BOONE Albuterol (Albuterol 2.5 Mg/3 Ml Nebu) 2.5 mg IH Q3HRT PRN PRN Reason: Shortness Of Breath Last Admin: 11/04/21 05:55 Dose: 2.5 mg Albuterol/Ipratropium (Ipratropium/Albuterol Sulfate 3 Ml Ampul.Neb) 1 ampul IH Q6HRT [facility] Last Admin: 11/04/21 09:39 Dose: 1 ampul Budesonide (Budesonide 0.5 Mg/2 Ml Nebu) 0.5 mg IH Q12HRT [facility] Famotidine (Famotidine 20 Mg Tab) 20 mg PO BID [facility] Last Admin: 11/04/21 10:59 Dose: 20 mg Heparin Sodium (Porcine) (Heparin 5,000 Unit/1 Ml Vial) 5,000 unit SUB-Q Q12HR [facility] Last Admin: 11/04/21 10:59 Dose: 5,000 unit Methylprednisolone Sodium Succinate (Methylprednisolone Sod Succinate 125 Mg/2 Ml Inj) 80 mg IV Q8HR [facility] Montelukast Sodium (Montelukast 10 Mg Tab) 10 mg PO QHS [facility] Last Admin: 11/04/21 00:48 Dose: 10 mg Morphine Sulfate (Morphine 2 Mg/1 Ml Inj) 2 mg IV Q4H PRN PRN Reason: Pain, Moderate (4-6) Morphine Sulfate (Morphine 4 Mg/1 Ml Inj) 4 mg IV Q4H PRN PRN Reason: Pain , Severe (7-10) Ondansetron HCl (Ondansetron 4 Mg/2 Ml Inj) 4 mg IV Q8H PRN PRN Reason: Nausea And Vomiting Sodium Chloride (Sodium Chloride 0.9% 10 Ml Flush Syringe) 10 ml IV BID CHANA Last Admin: 11/04/21 10:59 Dose: 10 ml Sodium Chloride (Sodium Chloride 0.9% 10 Ml Flush Syringe) 10 ml IV PRN PRN PRN Reason: LINE FLUSH Review of Systems All systems: negative Physical Examination Vital signs: Vital Signs Temp Pulse Resp BP Pulse Ox 97.5 F L 139 H 26 H 121/71 88 11/03/21 15:21 11/03/21 15:21 11/03/21 15:21 11/03/21 15:21 11/03/21 15:21 General appearance: alert, appears uncomfortable Eyes: non-icteric Effort: very labored Ascultation: Bilateral: diminished breath sounds (hardly any air movement) Results - Laboratory Findings CBC and BMP: 11/04/21 05:06 11/04/21 05:06 ABG ABG pH 7.357 pH Units (7.350-7.450) 11/03/21 17:25 ABG pCO2 41.0 mm Hg 11/03/21 17:25 ABG pO2 161.9 mm Hg (80.0-90.0) H 11/03/21 17:25 ABG O2 Saturation 98.9 % (95.0-99.0) 11/03/21 17:25 PT/INR, D-dimer PT 13.9 Sec. (12.2-14.9) 11/03/21 16:45 INR 0.97 (0.87-1.13) 11/03/21 16:45 D-Dimer 286.27 ng/mlDDU (0-234) H 11/03/21 19:02 Abnormal lab findings: Abnormal Labs 11/03/21 11/03/21 11/03/21 16:45 16:45 16:45 WBC 15.2 H RBC 5.68 H Hgb 16.8 H Hct 50.0 H Lymph % (Auto) 10.9 L [place] % (Auto) 11.6 H [place] # (Auto) 1.8 H Seg Neutrophils % 76.9 H Seg Neuts % (Manual) Lymphocytes % (Manual) Seg Neutrophils # 11.7 H Seg Neutrophils # Man Lymphocytes # (Manual) D-Dimer 296.55 H ABG pO2 ABG Base Excess Sodium 131 L Chloride 93.6 L Carbon Dioxide BUN 21 H Glucose 137 H Lactic Acid Total Bilirubin 2.00 H 11/03/21 11/03/21 11/03/21 17:25 19:02 19:02 WBC RBC Hgb Hct Lymph % (Auto) [place] % (Auto) [place] # (Auto) Seg Neutrophils % Seg Neuts % (Manual) Lymphocytes % (Manual) Seg Neutrophils # Seg Neutrophils # Man Lymphocytes # (Manual) D-Dimer 286.27 H ABG pO2 161.9 H ABG Base Excess -2.8 L Sodium Chloride Carbon Dioxide BUN Glucose Lactic Acid 3.40 H* Total Bilirubin 11/03/21 11/03/21 11/04/21 20:20 23:38 05:06 WBC 11.3 H RBC 5.31 H Hgb 15.8 H Hct 47.1 H Lymph % (Auto) [place] % (Auto) [place] # (Auto) Seg Neutrophils % Seg Neuts % (Manual) 93.0 H Lymphocytes % (Manual) 7.0 L Seg Neutrophils # Seg Neutrophils # Man 10.5 H Lymphocytes # (Manual) 0.8 L D-Dimer ABG pO2 ABG Base Excess Sodium Chloride Carbon Dioxide BUN Glucose Lactic Acid 4.00 H* 3.40 H* Total Bilirubin 11/04/21 05:06 WBC RBC Hgb Hct Lymph % (Auto) [place] % (Auto) [place] # (Auto) Seg Neutrophils % Seg Neuts % (Manual) Lymphocytes % (Manual) Seg Neutrophils # Seg Neutrophils # Man Lymphocytes # (Manual) D-Dimer ABG pO2 ABG Base Excess Sodium 134 L Chloride 97.9 L Carbon Dioxide 21 L BUN 27 H Glucose 178 H Lactic Acid Total Bilirubin - Diagnostic Findings Chest x-ray: image reviewed Assessment and Plan 66 y/o male with acute respiratory failure secondary to asthma exacerbation. 1. Bipap therapy now 2. May need to consider an hour long neb if bipap does not ease work of breathing 3. Added bid pulmicort 4. Continue scheduled duonebs. 5. Ok with 80q8, but may consider increasing frequency to q6 6. Guarded prognosis.
[2021-11-04] MEDS ORDERED: methylPREDNISolone Sod Succinate 125 MG/2 ML INJ IV SCH (14:00)
[2021-11-04] MEDS ORDERED: methylPREDNISolone Sod Succinate 40 MG/1 ML INJ IV SCH (14:00)
[2021-11-04] MEDS: BUDESONIDE 0.5 MG/2 ML NEBU IH SCH ×2 (15:39→20:06)
[2021-11-04] MEDS: methylPREDNISolone Sod Succinate 125 MG/2 ML INJ IV SCH (20:05)
[2021-11-05] MEDS: methylPREDNISolone Sod Succinate 125 MG/2 ML INJ IV SCH ×4 (00:55→22:26)
[2021-11-05] MEDS: ARFORMOTEROL 15 MCG/2 ML NEBU IH SCH ×3 (02:44→20:48)
[2021-11-05] MEDS: IPRATROPIUM/ALBUTEROL SULFATE 3 ML AMPUL.NEB IH SCH ×4 (02:46→20:47)
[2021-11-05] MEDS: BUDESONIDE 0.5 MG/2 ML NEBU IH SCH ×2 (09:05→20:48)
[2021-11-05] MEDS: HEPARIN 5,000 UNIT/1 ML VIAL SUB-Q SCH ×2 (09:52→22:25)
[2021-11-05] MEDS: FAMOTIDINE 20 MG TAB PO SCH ×2 (09:52→22:26)
--- NOTE | 2021-11-05 11:11 | Progress Note ---
Assessment and Plan 66 y/o male with acute respiratory failure secondary to asthma exacerbation. 11/05/21: Bipap therapy QHS and prn. continue high dose steroids and scheduled nebs. Overall improving. 1. Bipap therapy now 2. May need to consider an hour long neb if bipap does not ease work of breathing 3. Added bid pulmicort 4. Continue scheduled duonebs. 5. Ok with 80q8, but may consider increasing frequency to q6 6. Guarded prognosis. Subjective Date of service: 11/05/21 Interval history: Better today. Work of breathing improved. Moving more air Objective Vital Signs - 12hr 11/04/21 11/05/21 11/05/21 23:31 00:00 00:31 Temperature Pulse Rate 108 H 102 H 106 H Pulse Rate [ Anterior Bilateral Throughout] Pulse Rate [ Bilateral] Pulse Rate [ 102 H From Monitor] Respiratory 25 H 23 31 H Rate Respiratory Rate [Anterior Bilateral Throughout] Respiratory Rate [Bilateral ] Blood Pressure 156/93 120/77 120/77 O2 Sat by Pulse 92 93 93 Oximetry 11/05/21 11/05/21 11/05/21 01:00 01:01 02:00 Temperature Pulse Rate 102 H 107 H 89 Pulse Rate [ Anterior Bilateral Throughout] Pulse Rate [ Bilateral] Pulse Rate [ From Monitor] Respiratory 22 28 H 22 Rate Respiratory Rate [Anterior Bilateral Throughout] Respiratory Rate [Bilateral ] Blood Pressure 146/107 146/107 121/82 O2 Sat by Pulse 94 95 95 Oximetry 11/05/21 11/05/21 11/05/21 02:48 03:00 04:00 Temperature 97.6 F Pulse Rate 92 H 78 Pulse Rate [ 89 Anterior Bilateral Throughout] Pulse Rate [ 88 Bilateral] Pulse Rate [ 78 From Monitor] Respiratory 22 24 Rate Respiratory 22 Rate [Anterior Bilateral Throughout] Respiratory 22 Rate [Bilateral ] Blood Pressure 123/85 112/71 O2 Sat by Pulse 90 96 Oximetry 11/05/21 11/05/21 11/05/21 04:58 05:00 06:00 Temperature Pulse Rate 86 87 97 H Pulse Rate [ Anterior Bilateral Throughout] Pulse Rate [ Bilateral] Pulse Rate [ From Monitor] Respiratory 21 20 24 Rate Respiratory Rate [Anterior Bilateral Throughout] Respiratory Rate [Bilateral ] Blood Pressure 119/88 119/88 112/74 O2 Sat by Pulse 94 95 93 Oximetry 11/05/21 11/05/21 11/05/21 07:00 08:00 08:56 Temperature Pulse Rate 83 64 Pulse Rate [ Anterior Bilateral Throughout] Pulse Rate [ Bilateral] Pulse Rate [ From Monitor] Respiratory 19 19 Rate Respiratory Rate [Anterior Bilateral Throughout] Respiratory Rate [Bilateral ] Blood Pressure 108/76 124/67 O2 Sat by Pulse 96 96 94 Oximetry 11/05/21 11/05/21 09:00 09:06 Temperature Pulse Rate 77 Pulse Rate [ Anterior Bilateral Throughout] Pulse Rate [ 69 Bilateral] Pulse Rate [ From Monitor] Respiratory 14 Rate Respiratory Rate [Anterior Bilateral Throughout] Respiratory 22 Rate [Bilateral ] Blood Pressure 121/80 O2 Sat by Pulse 95 Oximetry Constitutional: alert, appears uncomfortable Eyes: non-icteric Effort: very labored Ascultation: Bilateral: diminished breath sounds (hardly any air movement) CBC and BMP: 11/04/21 05:06 11/04/21 05:06 ABG, PT/INR, D-dimer: ABG ABG pH 7.357 pH Units (7.350-7.450) 11/03/21 17:25 ABG pCO2 41.0 mm Hg 11/03/21 17:25 ABG pO2 161.9 mm Hg (80.0-90.0) H 11/03/21 17:25 ABG O2 Saturation 98.9 % (95.0-99.0) 11/03/21 17:25 PT/INR, D-dimer PT 13.9 Sec. (12.2-14.9) 11/03/21 16:45 INR 0.97 (0.87-1.13) 11/03/21 16:45 D-Dimer 286.27 ng/mlDDU (0-234) H 11/03/21 19:02 Abnormal lab findings: Abnormal Labs 11/03/21 11/03/21 11/03/21 16:45 16:45 16:45 WBC 15.2 H RBC 5.68 H Hgb 16.8 H Hct 50.0 H Lymph % (Auto) 10.9 L [place] % (Auto) 11.6 H [place] # (Auto) 1.8 H Seg Neutrophils % 76.9 H Seg Neuts % (Manual) Lymphocytes % (Manual) Seg Neutrophils # 11.7 H Seg Neutrophils # Man Lymphocytes # (Manual) D-Dimer 296.55 H ABG pO2 ABG Base Excess Sodium 131 L Chloride 93.6 L Carbon Dioxide BUN 21 H Glucose 137 H Lactic Acid Total Bilirubin 2.00 H 11/03/21 11/03/21 11/03/21 17:25 19:02 19:02 WBC RBC Hgb Hct Lymph % (Auto) [place] % (Auto) [place] # (Auto) Seg Neutrophils % Seg Neuts % (Manual) Lymphocytes % (Manual) Seg Neutrophils # Seg Neutrophils # Man Lymphocytes # (Manual) D-Dimer 286.27 H ABG pO2 161.9 H ABG Base Excess -2.8 L Sodium Chloride Carbon Dioxide BUN Glucose Lactic Acid 3.40 H* Total Bilirubin 11/03/21 11/03/21 11/04/21 20:20 23:38 05:06 WBC 11.3 H RBC 5.31 H Hgb 15.8 H Hct 47.1 H Lymph % (Auto) [place] % (Auto) [place] # (Auto) Seg Neutrophils % Seg Neuts % (Manual) 93.0 H Lymphocytes % (Manual) 7.0 L Seg Neutrophils # Seg Neutrophils # Man 10.5 H Lymphocytes # (Manual) 0.8 L D-Dimer ABG pO2 ABG Base Excess Sodium Chloride Carbon Dioxide BUN Glucose Lactic Acid 4.00 H* 3.40 H* Total Bilirubin 11/04/21 05:06 WBC RBC Hgb Hct Lymph % (Auto) [place] % (Auto) [place] # (Auto) Seg Neutrophils % Seg Neuts % (Manual) Lymphocytes % (Manual) Seg Neutrophils # Seg Neutrophils # Man Lymphocytes # (Manual) D-Dimer ABG pO2 ABG Base Excess Sodium 134 L Chloride 97.9 L Carbon Dioxide 21 L BUN 27 H Glucose 178 H Lactic Acid Total Bilirubin
--- NOTE | 2021-11-05 11:44 | Progress Note ---
Assessment and Plan Assessment and plan: 66-year-old male with history of asthma was brought to the emergency room because of difficulty breathing that been going on for the last 3 days progressively getting worse. He says he has use his home rescue medication which minimal improvement. Patient denies any productive cough. No fever or chills reported no chest pain or palpitation noted. No other modifying or associated factors reported. In the emergency room patient is found to have acute asthma exacerbation. Chest x-ray shows no acute finding 11/05: Patient seen and seen showing remarkable improvement. Will adjust steroids and continue IM stay at this time. Discussed with box stacker we will try on BiPAP again tonight and if continues to improve with then transition upstairs to the medical floor with anticipation for discharge in a day or 2 following that. - Patient Problems (1) Acute asthma exacerbation Current Visit: Yes Status: Acute Plan to address problem: Transferred patient to [facility] for further evaluation considering severe hypoxic respiratory failure Adjusted Solumedrol to 80mg IV Consulted Pulmonary for further management Oxygen by nasal cannula margarine maker pulmonate. DuoNeb nebulizer every 4 hours. Albuterol via nebulizer every 4 hours as needed. Add LABA, Singular 10 mg p.o. daily. Blood cultures sputum culture. Follow the CT scan of the chest. (2) Hypertension Current Visit: Yes Status: Acute Plan to address problem: Hydralazine 10 mg IV every 6 hours as needed. We will continue the home medication (3)Acute Hypoxic Respiratory failure (4)DVT prophylaxis Current Visit: Yes Status: Acute Plan to address problem: Heparin 5000 units subcu every 12 hours for DVT prophylaxis. Pepcid 20 mg p.o. twice daily for GI prophylaxis. Patient is a full code Discussed with family The high probability of a clinically significant, sudden or life threatening deterioration of the [Pulmonary] system(s) required my full and direct attention, intervention and personal management. The aggregate critical care time was [35] minutes. This time is in addition to time spent performing reported procedures but includes the following: [x] Data Review and interpretation [x] Patient assessment and monitoring of vital signs [x] Documentation [x] Medication orders and management History Interval history: Patient seen and examined this morning was on BiPAP and improving Hospitalist Physical - Physical exam Narrative exam: VITAL SIGNS: Reviewed. GENERAL: The patient appears normally developed, Vital signs as documented. HEAD: No signs of head trauma. EYES: Pupils are equal. Extraocular motions intact. EARS: Hearing grossly intact. MOUTH: Oropharynx is normal. NECK: No adenopathy, no JVD. CHEST: Chest with diminished with mild expiratory wheeze breath sounds bi laterally. No rales, or rhonchi. CARDIAC: Regular rate and rhythm. S1 and S2, without murmurs, gallops, or rubs. VASCULAR: No Edema. Peripheral pulses normal and equal in all extremities. ABDOMEN: Soft, non tender and non distended. No rebound or guarding, and no masses palpated. Bowel Sounds normal. MUSCULOSKELETAL: Good range of motion of all major joints. Extremities without clubbing, cyanosis or edema. NEUROLOGIC EXAM: Alert and oriented x 3 No focal sensory or strength de ficits. Speech normal. Follows commands. PSYCHIATRIC: Mood normal. SKIN: detail exam as documented in skin assessment - Constitutional Vitals: Temp Pulse Resp BP Pulse Ox 97.6 F 95 H 24 121/81 94 11/05/21 04:00 11/05/21 11:00 11/05/21 11:00 11/05/21 11:00 11/05/21 11:00 General appearance: Present: no acute distress, well-nourished HEART Score - HEART Score Troponin: Troponin T < 0.010 ng/mL (0.00-0.029) 11/03/21 16:45 Results - Labs CBC & Chem 7: 11/04/21 05:06 11/04/21 05:06 Labs: Laboratory Last Values WBC 11.3 K/mm3 (4.5-11.0) H 11/04/21 05:06 RBC 5.31 M/mm3 (3.65-5.03) H 11/04/21 05:06 Hgb 15.8 gm/dl (11.8-15.2) H 11/04/21 05:06 Hct 47.1 % (35.5-45.6) H 11/04/21 05:06 MCV 89 fl (84-94) 11/04/21 05:06 MCH 30 pg (28-32) 11/04/21 05:06 MCHC 34 % (32-34) 11/04/21 05:06 RDW 14.3 % (13.2-15.2) 11/04/21 05:06 Plt Count 219 K/mm3 (140-440) 11/04/21 05:06 Lymph % (Auto) 10.9 % (13.4-35.0) L 11/03/21 16:45 Runnels % (Auto) 11.6 % (0.0-7.3) H 11/03/21 16:45 Eos % (Auto) 0.1 % (0.0-4.3) 11/03/21 16:45 Baso % (Auto) 0.5 % (0.0-1.8) 11/03/21 16:45 Lymph # (Auto) 1.7 K/mm3 (1.2-5.4) 11/03/21 16:45 Runnels # (Auto) 1.8 K/mm3 (0.0-0.8) H 11/03/21 16:45 Eos # (Auto) 0.0 K/mm3 (0.0-0.4) 11/03/21 16:45 Baso # (Auto) 0.1 K/mm3 (0.0-0.1) 11/03/21 16:45 Add Manual Diff Complete 11/04/21 05:06 Total Counted 100 11/04/21 05:06 Seg Neutrophils % Rap Artist 11/04/21 05:06 Seg Neuts % (Manual) 93.0 % (40.0-70.0) H 11/04/21 05:06 Band Neutrophils % 0 % 11/04/21 05:06 Lymphocytes % (Manual) 7.0 % (13.4-35.0) L 11/04/21 05:06 Reactive Lymphs % (Man) 0 % 11/04/21 05:06 Monocytes % (Manual) 0 % (0.0-7.3) 11/04/21 05:06 Eosinophils % (Manual) 0 % (0.0-4.3) 11/04/21 05:06 Basophils % (Manual) 0 % (0.0-1.8) 11/04/21 05:06 Metamyelocytes % 0 % 11/04/21 05:06 Myelocytes % 0 % 11/04/21 05:06 Promyelocytes % 0 % 11/04/21 05:06 Blast Cells % 0 % 11/04/21 05:06 Nucleated RBC % Not Reportable 11/04/21 05:06 Seg Neutrophils # 11.7 K/mm3 (1.8-7.7) H 11/03/21 16:45 Seg Neutrophils # Man 10.5 K/mm3 (1.8-7.7) H 11/04/21 05:06 Band Neutrophils # 0.0 K/mm3 11/04/21 05:06 Lymphocytes # (Manual) 0.8 K/mm3 (1.2-5.4) L 11/04/21 05:06 Abs React Lymphs (Man) 0.0 K/mm3 11/04/21 05:06 Monocytes # (Manual) 0.0 K/mm3 (0.0-0.8) 11/04/21 05:06 Eosinophils # (Manual) 0.0 K/mm3 (0.0-0.4) 11/04/21 05:06 Basophils # (Manual) 0.0 K/mm3 (0.0-0.1) 11/04/21 05:06 Metamyelocytes # 0.0 K/mm3 11/04/21 05:06 Myelocytes # 0.0 K/mm3 11/04/21 05:06 Promyelocytes # 0.0 K/mm3 11/04/21 05:06 Blast Cells # 0.0 K/mm3 11/04/21 05:06 WBC Morphology Not Reportable 11/04/21 05:06 Hypersegmented Neuts Not Reportable 11/04/21 05:06 Hyposegmented Neuts Not Reportable 11/04/21 05:06 Hypogranular Neuts Not Reportable 11/04/21 05:06 Smudge Cells Not Reportable 11/04/21 05:06 Toxic Granulation Not Reportable 11/04/21 05:06 Toxic Vacuolation Not Reportable 11/04/21 05:06 Dohle Bodies Not Reportable 11/04/21 05:06 Pelger-Huet Anomaly Not Reportable 11/04/21 05:06 Kenia Rods Not Reportable 11/04/21 05:06 Platelet Estimate Consistent w auto 11/04/21 05:06 Clumped Platelets Not Reportable 11/04/21 05:06 Plt Clumps, EDTA Not Reportable 11/04/21 05:06 Large Platelets Not Reportable 11/04/21 05:06 Giant Platelets Not Reportable 11/04/21 05:06 Platelet Satelliting Not Reportable 11/04/21 05:06 Plt Morphology Comment Not Reportable 11/04/21 05:06 RBC Morphology Normal 11/04/21 05:06 Dimorphic RBCs Not Reportable 11/04/21 05:06 Polychromasia Not Reportable 11/04/21 05:06 Hypochromasia Not Reportable 11/04/21 05:06 Poikilocytosis Not Reportable 11/04/21 05:06 Anisocytosis Not Reportable 11/04/21 05:06 Microcytosis Not Reportable 11/04/21 05:06 Macrocytosis Not Reportable 11/04/21 05:06 Spherocytes Not Reportable 11/04/21 05:06 Pappenheimer Bodies Not Reportable 11/04/21 05:06 Sickle Cells Not Reportable 11/04/21 05:06 Target Cells Not Reportable 11/04/21 05:06 Tear Drop Cells Not Reportable 11/04/21 05:06 Ovalocytes Not Reportable 11/04/21 05:06 Helmet Cells Not Reportable 11/04/21 05:06 [place] Bodies Not Reportable 11/04/21 05:06 [place] Rings Not Reportable 11/04/21 05:06 Wade Cells Not Reportable 11/04/21 05:06 Bite Cells Not Reportable 11/04/21 05:06 Crenated Cell Not Reportable 11/04/21 05:06 Elliptocytes Not Reportable 11/04/21 05:06 Acanthocytes (Spur) Not Reportable 11/04/21 05:06 Rouleaux Not Reportable 11/04/21 05:06 Hemoglobin C Crystals Not Reportable 11/04/21 05:06 Schistocytes Not Reportable 11/04/21 05:06 Malaria parasites Not Reportable 11/04/21 05:06 Timoteo Bodies Not Reportable 11/04/21 05:06 Hem Pathologist Commnt No 11/04/21 05:06 PT 13.9 Sec. (12.2-14.9) 11/03/21 16:45 INR 0.97 (0.87-1.13) 11/03/21 16:45 APTT 27.3 Sec. (24.2-36.6) 11/03/21 16:45 D-Dimer 286.27 ng/mlDDU (0-234) H 11/03/21 19:02 ABG pH 7.357 pH Units (7.350-7.450) 11/03/21 17:25 ABG pCO2 41.0 mm Hg 11/03/21 17:25 ABG pO2 161.9 mm Hg (80.0-90.0) H 11/03/21 17:25 ABG HCO3 22.5 mmol/L (20.0-26.0) 11/03/21 17:25 ABG O2 Saturation 98.9 % (95.0-99.0) 11/03/21 17:25 ABG O2 Content 23.5 (0.0-44) 11/03/21 17:25 ABG Base Excess -2.8 mmol/L (-2.0-3.0) L 11/03/21 17:25 ABG Hemoglobin 17.1 gm/dl (14.0-18.0) 11/03/21 17:25 ABG Carboxyhemoglobin 1.6 % (0.0-5.0) 11/03/21 17:25 ABG Methemoglobin 0.7 % (0.0-1.5) 11/03/21 17:25 Oxyhemoglobin 96.7 % (95.0-99.0) 11/03/21 17:25 FiO2 50 % 11/03/21 17:25 Sodium 134 mmol/L (137-145) L 11/04/21 05:06 Potassium 4.9 mmol/L (3.6-5.0) 11/04/21 05:06 Chloride 97.9 mmol/L (98-107) L 11/04/21 05:06 Carbon Dioxide 21 mmol/L (22-30) L 11/04/21 05:06 Anion Gap 20 mmol/L 11/04/21 05:06 BUN 27 mg/dL (9-20) H 11/04/21 05:06 Creatinine 0.8 mg/dL (0.8-1.3) 11/04/21 05:06 Estimated GFR > 60 ml/min 11/04/21 05:06 BUN/Creatinine Ratio 34 % 11/04/21 05:06 Glucose 178 mg/dL (75-100) H 11/04/21 05:06 Lactic Acid 1.50 mmol/L (0.7-2.0) 11/04/21 05:06 Calcium 8.9 mg/dL (8.4-10.2) 11/04/21 05:06 Total Bilirubin 2.00 mg/dL (0.1-1.2) H 11/03/21 16:45 AST 22 units/L (5-40) 11/03/21 16:45 ALT 24 units/L (7-56) 11/03/21 16:45 Alkaline Phosphatase 81 units/L (35-129) 11/03/21 16:45 Troponin T < 0.010 ng/mL (0.00-0.029) 11/03/21 16:45 Total Protein 8.2 g/dL (6.3-8.2) 11/03/21 16:45 Albumin 4.4 g/dL (3.9-5) 11/03/21 16:45 Albumin/Globulin Ratio 1.2 % 11/03/21 16:45 SARS-CoV-2 (PCR) Negative (Negative) 11/04/21 14:15 Katz/IV: Voiding Method Urinal Active Medications - Current Medications Current Medications: Generic Name Dose Route Start Last Admin Trade Name Freq PRN Reason Stop Dose Admin Acetaminophen 650 mg 11/03/21 21:53 Acetaminophen 325 Mg Tab PO Q4H PRN Pain MILD(1-3)/Fever >100.5/BOONE Albuterol 2.5 mg 11/03/21 21:53 11/04/21 05:55 Albuterol 2.5 Mg/3 Ml Nebu IH 2.5 mg Q3HRT PRN Administration Shortness Of Breath Albuterol/Ipratropium 1 ampul 11/04/21 02:00 11/05/21 09:06 Ipratropium/Albuterol Sulfate 3 Ml Ampul.Neb IH Not Given Q6HRT CHANA Arformoterol Tartrate 15 mcg 11/04/21 20:00 11/05/21 09:05 Arformoterol 15 Mcg/2 Ml Nebu IH 15 mcg Q12HRT CHANA Administration Budesonide 0.5 mg 11/04/21 12:30 11/05/21 09:05 Budesonide 0.5 Mg/2 Ml Nebu IH 0.5 mg Q12HRT CHANA Administration Famotidine 20 mg 11/03/21 22:00 11/05/21 09:52 Famotidine 20 Mg Tab PO 20 mg BID CHANA Administration Heparin Sodium (Porcine) 5,000 unit 11/03/21 22:00 11/05/21 09:52 Heparin 5,000 Unit/1 Ml Vial SUB-Q 5,000 unit Q12HR CHANA Administration Methylprednisolone Sodium Succinate 80 mg 11/05/21 14:00 Methylprednisolone Sod Succinate 125 Mg/2 Ml Inj IV Q8HR CHANA Montelukast Sodium 10 mg 11/03/21 22:00 11/04/21 22:35 Montelukast 10 Mg Tab PO 10 mg QHS CHANA Administration Morphine Sulfate 2 mg 11/03/21 21:53 Morphine 2 Mg/1 Ml Inj IV Q4H PRN Pain, Moderate (4-6) Morphine Sulfate 4 mg 11/03/21 21:53 Morphine 4 Mg/1 Ml Inj IV Q4H PRN Pain , Severe (7-10) Ondansetron HCl 4 mg 11/03/21 21:53 Ondansetron 4 Mg/2 Ml Inj IV Q8H PRN Nausea And Vomiting Sodium Chloride 10 ml 11/03/21 22:00 11/05/21 09:52 Sodium Chloride 0.9% 10 Ml Flush Syringe IV 10 ml BID CHANA Administration Sodium Chloride 10 ml 11/03/21 21:53 Sodium Chloride 0.9% 10 Ml Flush Syringe IV PRN PRN LINE FLUSH
[2021-11-05] MEDS: MONTELUKAST 10 MG TAB PO SCH (22:26)
[2021-11-06] MEDS: IPRATROPIUM/ALBUTEROL SULFATE 3 ML AMPUL.NEB IH SCH ×4 (02:16→20:01)
[2021-11-06 05:44] LABS: Hematocrit 44.6 % (35.5-45.6); Hemoglobin 14.4 gm/dl (11.8-15.2); Mean Corpuscular HGB Conc 32 % (32-34); Mean Corpuscular Volume 90 fl (84-94); Platelet Count 230 K/mm3 (140-440); Red Blood Count 4.97 M/mm3 (3.65-5.03); Red Cell Distribution Width 14.1 % (13.2-15.2)
[2021-11-06 06:08] LABS: Alanine Aminotransferase 23 units/L (7-56); Albumin 3.8 g/dL (3.9-5); BUN/Creatinine Ratio 49; Blood Urea Nitrogen 34 mg/dL (9-20); Calcium 9.1 mg/dL (8.4-10.2); Hemolysis Index 6
[2021-11-06] MEDS: methylPREDNISolone Sod Succinate 125 MG/2 ML INJ IV SCH ×3 (06:54→21:32)
[2021-11-06] MEDS: BUDESONIDE 0.5 MG/2 ML NEBU IH SCH ×2 (08:06→20:01)
[2021-11-06] MEDS: ARFORMOTEROL 15 MCG/2 ML NEBU IH SCH ×2 (08:06→20:01)
[2021-11-06] MEDS: ALBUTEROL 2.5 MG/3 ML NEBU IH PRN (08:06)
--- NOTE | 2021-11-06 08:12 | Progress Note ---
Assessment and Plan 66 y/o male with acute respiratory failure secondary to asthma exacerbation. 11/06/21: Continue to wean and use NIV at night. Continue all other therapies. 11/05/21: Bipap therapy QHS and prn. continue high dose steroids and scheduled nebs. Overall improving. 1. Bipap therapy now 2. May need to consider an hour long neb if bipap does not ease work of breathing 3. Added bid pulmicort 4. Continue scheduled duonebs. 5. Ok with 80q8, but may consider increasing frequency to q6 6. Guarded prognosis. Subjective Date of service: 11/06/21 Interval history: No acute events Objective Vital Signs - 12hr 11/05/21 11/05/21 11/05/21 20:48 20:53 21:00 Temperature Pulse Rate 77 Pulse Rate [ 76 Bilateral] Pulse Rate [ From Monitor] Respiratory 19 Rate Respiratory 19 Rate [Bilateral ] Blood Pressure 106/62 O2 Sat by Pulse 94 95 Oximetry 11/05/21 11/05/21 11/05/21 22:00 23:00 23:17 Temperature Pulse Rate 71 73 78 Pulse Rate [ Bilateral] Pulse Rate [ From Monitor] Respiratory 19 16 11 L Rate Respiratory Rate [Bilateral ] Blood Pressure 110/63 117/69 117/69 O2 Sat by Pulse 95 96 94 Oximetry 11/06/21 11/06/21 11/06/21 00:00 00:01 00:26 Temperature 97.4 F L Pulse Rate 68 66 Pulse Rate [ Bilateral] Pulse Rate [ From Monitor] Respiratory 11 L 19 Rate Respiratory Rate [Bilateral ] Blood Pressure 121/64 121/64 O2 Sat by Pulse 98 95 Oximetry 11/06/21 11/06/21 11/06/21 00:30 01:00 02:00 Temperature Pulse Rate 73 64 60 Pulse Rate [ Bilateral] Pulse Rate [ 68 From Monitor] Respiratory 12 18 18 Rate Respiratory Rate [Bilateral ] Blood Pressure 113/59 115/69 O2 Sat by Pulse 95 96 96 Oximetry 11/06/21 11/06/21 11/06/21 03:00 03:50 04:00 Temperature 97.6 F Pulse Rate 65 54 L 62 Pulse Rate [ Bilateral] Pulse Rate [ 62 From Monitor] Respiratory 17 17 Rate Respiratory Rate [Bilateral ] Blood Pressure 101/63 102/64 O2 Sat by Pulse 97 97 Oximetry 11/06/21 11/06/21 11/06/21 04:46 05:00 06:00 Temperature Pulse Rate 61 58 L 53 L Pulse Rate [ Bilateral] Pulse Rate [ From Monitor] Respiratory 20 18 14 Rate Respiratory Rate [Bilateral ] Blood Pressure 102/64 105/61 102/60 O2 Sat by Pulse 96 95 97 Oximetry 11/06/21 08:00 Temperature Pulse Rate Pulse Rate [ Bilateral] Pulse Rate [ From Monitor] Respiratory Rate Respiratory Rate [Bilateral ] Blood Pressure O2 Sat by Pulse 97 Oximetry Constitutional: alert, appears uncomfortable Eyes: non-icteric Effort: very labored Ascultation: Bilateral: diminished breath sounds (hardly any air movement) CBC and BMP: 11/06/21 05:28 11/06/21 05:28 ABG, PT/INR, D-dimer: ABG ABG pH 7.357 pH Units (7.350-7.450) 11/03/21 17:25 ABG pCO2 41.0 mm Hg 11/03/21 17:25 ABG pO2 161.9 mm Hg (80.0-90.0) H 11/03/21 17:25 ABG O2 Saturation 98.9 % (95.0-99.0) 11/03/21 17:25 PT/INR, D-dimer PT 13.9 Sec. (12.2-14.9) 11/03/21 16:45 INR 0.97 (0.87-1.13) 11/03/21 16:45 D-Dimer 286.27 ng/mlDDU (0-234) H 11/03/21 19:02 Abnormal lab findings: Abnormal Labs 11/03/21 11/03/21 11/03/21 16:45 16:45 16:45 WBC 15.2 H RBC 5.68 H Hgb 16.8 H Hct 50.0 H Lymph % (Auto) 10.9 L Bee % (Auto) 11.6 H Bee # (Auto) 1.8 H Seg Neutrophils % 76.9 H Seg Neuts % (Manual) Lymphocytes % (Manual) Seg Neutrophils # 11.7 H Seg Neutrophils # Man Lymphocytes # (Manual) D-Dimer 296.55 H ABG pO2 ABG Base Excess Sodium 131 L Chloride 93.6 L Carbon Dioxide BUN 21 H Creatinine Glucose 137 H Lactic Acid Total Bilirubin 2.00 H Albumin 11/03/21 11/03/21 11/03/21 17:25 19:02 19:02 WBC RBC Hgb Hct Lymph % (Auto) Bee % (Auto) Bee # (Auto) Seg Neutrophils % Seg Neuts % (Manual) Lymphocytes % (Manual) Seg Neutrophils # Seg Neutrophils # Man Lymphocytes # (Manual) D-Dimer 286.27 H ABG pO2 161.9 H ABG Base Excess -2.8 L Sodium Chloride Carbon Dioxide BUN Creatinine Glucose Lactic Acid 3.40 H* Total Bilirubin Albumin 11/03/21 11/03/21 11/04/21 20:20 23:38 05:06 WBC 11.3 H RBC 5.31 H Hgb 15.8 H Hct 47.1 H Lymph % (Auto) Bee % (Auto) Bee # (Auto) Seg Neutrophils % Seg Neuts % (Manual) 93.0 H Lymphocytes % (Manual) 7.0 L Seg Neutrophils # Seg Neutrophils # Man 10.5 H Lymphocytes # (Manual) 0.8 L D-Dimer ABG pO2 ABG Base Excess Sodium Chloride Carbon Dioxide BUN Creatinine Glucose Lactic Acid 4.00 H* 3.40 H* Total Bilirubin Albumin 11/04/21 11/06/21 11/06/21 05:06 05:28 05:28 WBC 15.7 H RBC Hgb Hct Lymph % (Auto) Bee % (Auto) Bee # (Auto) Seg Neutrophils % Seg Neuts % (Manual) Lymphocytes % (Manual) Seg Neutrophils # Seg Neutrophils # Man Lymphocytes # (Manual) D-Dimer ABG pO2 ABG Base Excess Sodium 134 L 134 L Chloride 97.9 L 96.0 L Carbon Dioxide 21 L BUN 27 H 34 H Creatinine 0.7 L Glucose 178 H 175 H Lactic Acid Total Bilirubin Albumin 3.8 L
[2021-11-06] MEDS: HEPARIN 5,000 UNIT/1 ML VIAL SUB-Q SCH ×2 (09:55→21:33)
[2021-11-06] MEDS: FAMOTIDINE 20 MG TAB PO SCH ×2 (09:55→21:32)
--- NOTE | 2021-11-06 10:00 | Progress Note ---
Assessment and Plan Assessment and plan: 66-year-old male with history of asthma was brought to the emergency room because of difficulty breathing that been going on for the last 3 days progressively getting worse. He says he has use his home rescue medication which minimal improvement. Patient denies any productive cough. No fever or chills reported no chest pain or palpitation noted. No other modifying or associated factors reported. In the emergency room patient is found to have acute asthma exacerbation. Chest x-ray shows no acute finding 11/05: Patient seen and seen showing remarkable improvement. Will adjust steroids and continue IMCU stay at this time. Discussed with lcac operator we will try on BiPAP again tonight and if continues to improve with then transition upstairs to the medical floor with anticipation for discharge in a day or 2 following that. 11/06: Continue supportive care, patient is on HFNC at 65%, continue IMCU stay, continue high dose steroids and wean as tolerated. - Patient Problems (1) Acute asthma exacerbation Current Visit: Yes Status: Acute Plan to address problem: Transferred patient to [facility] for further evaluation considering severe hypoxic respiratory failure Adjusted Solumedrol to 80mg IV Consulted Pulmonary for further management Oxygen by nasal cannula caseworker protective services pulmonate. DuoNeb nebulizer every 4 hours. Albuterol via nebulizer every 4 hours as needed. Add LABA, Singular 10 mg p.o. daily. Blood cultures sputum culture. Follow the CT scan of the chest. (2) Hypertension Current Visit: Yes Status: Acute Plan to address problem: Hydralazine 10 mg IV every 6 hours as needed. We will continue the home medication (3)Acute Hypoxic Respiratory failure (4)DVT prophylaxis Current Visit: Yes Status: Acute Plan to address problem: Heparin 5000 units subcu every 12 hours for DVT prophylaxis. Pepcid 20 mg p.o. twice daily for GI prophylaxis. Patient is a full code Discussed with family The high probability of a clinically significant, sudden or life threatening de terioration of the [Pulmonary] system(s) required my full and direct attention, intervention and personal management. The aggregate critical care time was [35] minutes. This time is in addition to time spent performing reported procedures but includes the following: [x] Data Review and interpretation [x] Patient assessment and monitoring of vital signs [x] Documentation [x] Medication orders and management History Interval history: Patient seen and examined this morning , tolerated BiPAP last night, Hospitalist Physical - Physical exam Narrative exam: VITAL SIGNS: Reviewed. GENERAL: The patient appears normally developed, Vital signs as documented. HEAD: No signs of head trauma. EYES: Pupils are equal. Extraocular motions intact. EARS: Hearing grossly intact. MOUTH: Oropharynx is normal. NECK: No adenopathy, no JVD. CHEST: Chest with diminished with mild expiratory wheeze breath sounds bilaterally. No rales, or rhonchi. CARDIAC: Regular rate and rhythm. S1 and S2, without murmurs, gallops, or rubs. VASCULAR: No Edema. Peripheral pulses normal and equal in all extremities. ABDOMEN: Soft, non tender and non distended. No rebound or guarding, and no masses palpated. Bowel Sounds normal. MUSCULOSKELETAL: Good range of motion of all major joints. Extremities without clubbing, cyanosis or edema. NEUROLOGIC EXAM: Alert and oriented x 3 No focal sensory or strength deficits. Speech normal. Follows commands. PSYCHIATRIC: Mood normal. SKIN: detail exam as documented in skin assessment - Constitutional Vitals: Temp Pulse Resp BP Pulse Ox 97.5 F L 61 16 113/42 97 11/06/21 08:42 11/06/21 08:01 11/06/21 08:01 11/06/21 08:01 11/06/21 08:01 General appearance: Present: no acute distress, well-nourished HEART Score - HEART Score Troponin: Troponin T < 0.010 ng/mL (0.00-0.029) 11/03/21 16:45 Results - Labs CBC & Chem 7: 11/06/21 05:28 11/06/21 05:28 Labs: Laboratory Last Values WBC 15.7 K/mm3 (4.5-11.0) H 11/06/21 05:28 RBC 4.97 M/mm3 (3.65-5.03) 11/06/21 05:28 Hgb 14.4 gm/dl (11.8-15.2) 11/06/21 05:28 Hct 44.6 % (35.5-45.6) 11/06/21 05:28 MCV 90 fl (84-94) 11/06/21 05:28 MCH 29 pg (28-32) 11/06/21 05:28 MCHC 32 % (32-34) 11/06/21 05:28 RDW 14.1 % (13.2-15.2) 11/06/21 05:28 Plt Count 230 K/mm3 (140-440) 11/06/21 05:28 Lymph % (Auto) 10.9 % (13.4-35.0) L 11/03/21 16:45 [place] % (Auto) 11.6 % (0.0-7.3) H 11/03/21 16:45 Eos % (Auto) 0.1 % (0.0-4.3) 11/03/21 16:45 Baso % (Auto) 0.5 % (0.0-1.8) 11/03/21 16:45 Lymph # (Auto) 1.7 K/mm3 (1.2-5.4) 11/03/21 16:45 [place] # (Auto) 1.8 K/mm3 (0.0-0.8) H 11/03/21 16:45 Eos # (Auto) 0.0 K/mm3 (0.0-0.4) 11/03/21 16:45 Baso # (Auto) 0.1 K/mm3 (0.0-0.1) 11/03/21 16:45 Add Manual Diff Complete 11/04/21 05:06 Total Counted 100 11/04/21 05:06 Seg Neutrophils % Buckle Sorter 11/04/21 05:06 Seg Neuts % (Manual) 93.0 % (40.0-70.0) H 11/04/21 05:06 Band Neutrophils % 0 % 11/04/21 05:06 Lymphocytes % (Manual) 7.0 % (13.4-35.0) L 11/04/21 05:06 Reactive Lymphs % (Man) 0 % 11/04/21 05:06 Monocytes % (Manual) 0 % (0.0-7.3) 11/04/21 05:06 Eosinophils % (Manual) 0 % (0.0-4.3) 11/04/21 05:06 Basophils % (Manual) 0 % (0.0-1.8) 11/04/21 05:06 Metamyelocytes % 0 % 11/04/21 05:06 Myelocytes % 0 % 11/04/21 05:06 Promyelocytes % 0 % 11/04/21 05:06 Blast Cells % 0 % 11/04/21 05:06 Nucleated RBC % Not Reportable 11/04/21 05:06 Seg Neutrophils # 11.7 K/mm3 (1.8-7.7) H 11/03/21 16:45 Seg Neutrophils # Man 10.5 K/mm3 (1.8-7.7) H 11/04/21 05:06 Band Neutrophils # 0.0 K/mm3 11/04/21 05:06 Lymphocytes # (Manual) 0.8 K/mm3 (1.2-5.4) L 11/04/21 05:06 Abs React Lymphs (Man) 0.0 K/mm3 11/04/21 05:06 Monocytes # (Manual) 0.0 K/mm3 (0.0-0.8) 11/04/21 05:06 Eosinophils # (Manual) 0.0 K/mm3 (0.0-0.4) 11/04/21 05:06 Basophils # (Manual) 0.0 K/mm3 (0.0-0.1) 11/04/21 05:06 Metamyelocytes # 0.0 K/mm3 11/04/21 05:06 Myelocytes # 0.0 K/mm3 11/04/21 05:06 Promyelocytes # 0.0 K/mm3 11/04/21 05:06 Blast Cells # 0.0 K/mm3 11/04/21 05:06 WBC Morphology Not Reportable 11/04/21 05:06 Hypersegmented Neuts Not Reportable 11/04/21 05:06 Hyposegmented Neuts Not Reportable 11/04/21 05:06 Hypogranular Neuts Not Reportable 11/04/21 05:06 Smudge Cells Not Reportable 11/04/21 05:06 Toxic Granulation Not Reportable 11/04/21 05:06 Toxic Vacuolation Not Reportable 11/04/21 05:06 Dohle Bodies Not Reportable 11/04/21 05:06 Pelger-Huet Anomaly Not Reportable 11/04/21 05:06 Kenia Rods Not Reportable 11/04/21 05:06 Platelet Estimate Consistent w auto 11/04/21 05:06 Clumped Platelets Not Reportable 11/04/21 05:06 Plt Clumps, EDTA Not Reportable 11/04/21 05:06 Large Platelets Not Reportable 11/04/21 05:06 Giant Platelets Not Reportable 11/04/21 05:06 Platelet Satelliting Not Reportable 11/04/21 05:06 Plt Morphology Comment Not Reportable 11/04/21 05:06 RBC Morphology Normal 11/04/21 05:06 Dimorphic RBCs Not Reportable 11/04/21 05:06 Polychromasia Not Reportable 11/04/21 05:06 Hypochromasia Not Reportable 11/04/21 05:06 Poikilocytosis Not Reportable 11/04/21 05:06 Anisocytosis Not Reportable 11/04/21 05:06 Microcytosis Not Reportable 11/04/21 05:06 Macrocytosis Not Reportable 11/04/21 05:06 Spherocytes Not Reportable 11/04/21 05:06 Pappenheimer Bodies Not Reportable 11/04/21 05:06 Sickle Cells Not Reportable 11/04/21 05:06 Target Cells Not Reportable 11/04/21 05:06 Tear Drop Cells Not Reportable 11/04/21 05:06 Ovalocytes Not Reportable 11/04/21 05:06 Helmet Cells Not Reportable 11/04/21 05:06 [place] Bodies Not Reportable 11/04/21 05:06 [place] Rings Not Reportable 11/04/21 05:06 [place] Cells Not Reportable 11/04/21 05:06 Bite Cells Not Reportable 11/04/21 05:06 Crenated Cell Not Reportable 11/04/21 05:06 Elliptocytes Not Reportable 11/04/21 05:06 Acanthocytes (Spur) Not Reportable 11/04/21 05:06 Rouleaux Not Reportable 11/04/21 05:06 Hemoglobin C Crystals Not Reportable 11/04/21 05:06 Schistocytes Not Reportable 11/04/21 05:06 Malaria parasites Not Reportable 11/04/21 05:06 [place] Bodies Not Reportable 11/04/21 05:06 Hem Pathologist Commnt No 11/04/21 05:06 PT 13.9 Sec. (12.2-14.9) 11/03/21 16:45 INR 0.97 (0.87-1.13) 11/03/21 16:45 APTT 27.3 Sec. (24.2-36.6) 11/03/21 16:45 D-Dimer 286.27 ng/mlDDU (0-234) H 11/03/21 19:02 ABG pH 7.357 pH Units (7.350-7.450) 11/03/21 17:25 ABG pCO2 41.0 mm Hg 11/03/21 17:25 ABG pO2 161.9 mm Hg (80.0-90.0) H 11/03/21 17:25 ABG HCO3 22.5 mmol/L (20.0-26.0) 11/03/21 17:25 ABG O2 Saturation 98.9 % (95.0-99.0) 11/03/21 17:25 ABG O2 Content 23.5 (0.0-44) 11/03/21 17:25 ABG Base Excess -2.8 mmol/L (-2.0-3.0) L 11/03/21 17:25 ABG Hemoglobin 17.1 gm/dl (14.0-18.0) 11/03/21 17:25 ABG Carboxyhemoglobin 1.6 % (0.0-5.0) 11/03/21 17:25 ABG Methemoglobin 0.7 % (0.0-1.5) 11/03/21 17:25 Oxyhemoglobin 96.7 % (95.0-99.0) 11/03/21 17:25 FiO2 50 % 11/03/21 17:25 Sodium 134 mmol/L (137-145) L 11/06/21 05:28 Potassium 5.0 mmol/L (3.6-5.0) 11/06/21 05:28 Chloride 96.0 mmol/L (98-107) L 11/06/21 05:28 Carbon Dioxide 28 mmol/L (22-30) D 11/06/21 05:28 Anion Gap 15 mmol/L 11/06/21 05:28 BUN 34 mg/dL (9-20) H 11/06/21 05:28 Creatinine 0.7 mg/dL (0.8-1.3) L 11/06/21 05:28 Estimated GFR > 60 ml/min 11/06/21 05:28 BUN/Creatinine Ratio 49 % 11/06/21 05:28 Glucose 175 mg/dL (75-100) H 11/06/21 05:28 Lactic Acid 1.50 mmol/L (0.7-2.0) 11/04/21 05:06 Calcium 9.1 mg/dL (8.4-10.2) 11/06/21 05:28 Total Bilirubin 0.40 mg/dL (0.1-1.2) 11/06/21 05:28 AST 18 units/L (5-40) 11/06/21 05:28 ALT 23 units/L (7-56) 11/06/21 05:28 Alkaline Phosphatase 58 units/L (35-129) 11/06/21 05:28 Troponin T < 0.010 ng/mL (0.00-0.029) 11/03/21 16:45 Total Protein 6.9 g/dL (6.3-8.2) 11/06/21 05:28 Albumin 3.8 g/dL (3.9-5) L 11/06/21 05:28 Albumin/Globulin Ratio 1.2 % 11/06/21 05:28 SARS-CoV-2 (PCR) Negative (Negative) 11/04/21 14:15 Katz/IV: Voiding Method Urinal Active Medications - Current Medications Current Medications: Generic Name Dose Route Start Last Admin Trade Name Freq PRN Reason Stop Dose Admin Acetaminophen 650 mg 11/03/21 21:53 Acetaminophen 325 Mg Tab PO Q4H PRN Pain MILD(1-3)/Fever >100.5/BOONE Albuterol 2.5 mg 11/03/21 21:53 11/06/21 08:06 Albuterol 2.5 Mg/3 Ml Nebu IH 2.5 mg Q3HRT PRN Administration Shortness Of Breath Albuterol/Ipratropium 1 ampul 11/04/21 02:00 11/06/21 02:16 Ipratropium/Albuterol Sulfate 3 Ml Ampul.Neb IH Not Given Q6HRT CHANA Arformoterol Tartrate 15 mcg 11/04/21 20:00 11/06/21 08:06 Arformoterol 15 Mcg/2 Ml Nebu IH 15 mcg Q12HRT CHANA Administration Budesonide 0.5 mg 11/04/21 12:30 11/06/21 08:06 Budesonide 0.5 Mg/2 Ml Nebu IH 0.5 mg Q12HRT CHANA Administration Famotidine 20 mg 11/03/21 22:00 11/05/21 22:26 Famotidine 20 Mg Tab PO 20 mg BID CHANA Administration Heparin Sodium (Porcine) 5,000 unit 11/03/21 22:00 11/05/21 22:25 Heparin 5,000 Unit/1 Ml Vial SUB-Q 5,000 unit Q12HR CHANA Administration Methylprednisolone Sodium Succinate 80 mg 11/05/21 14:00 11/06/21 06:54 Methylprednisolone Sod Succinate 125 Mg/2 Ml Inj IV 80 mg Q8HR CHANA Administration Montelukast Sodium 10 mg 11/03/21 22:00 11/05/21 22:26 Montelukast 10 Mg Tab PO 10 mg QHS CHANA Administration Morphine Sulfate 2 mg 11/03/21 21:53 Morphine 2 Mg/1 Ml Inj IV Q4H PRN Pain, Moderate (4-6) Morphine Sulfate 4 mg 11/03/21 21:53 Morphine 4 Mg/1 Ml Inj IV Q4H PRN Pain , Severe (7-10) Ondansetron HCl 4 mg 11/03/21 21:53 Ondansetron 4 Mg/2 Ml Inj IV Q8H PRN Nausea And Vomiting Sodium Chloride 10 ml 11/03/21 22:00 11/05/21 22:26 Sodium Chloride 0.9% 10 Ml Flush Syringe IV 10 ml BID CHANA Administration Sodium Chloride 10 ml 11/03/21 21:53 Sodium Chloride 0.9% 10 Ml Flush Syringe IV PRN PRN LINE FLUSH
[2021-11-06] MEDS: MONTELUKAST 10 MG TAB PO SCH (21:32)
[2021-11-07] MEDS: IPRATROPIUM/ALBUTEROL SULFATE 3 ML AMPUL.NEB IH SCH ×4 (04:29→21:31)
[2021-11-07] MEDS: methylPREDNISolone Sod Succinate 125 MG/2 ML INJ IV SCH ×3 (05:40→21:54)
--- NOTE | 2021-11-07 07:57 | Progress Note ---
Assessment and Plan Assessment and plan: 66-year-old male with history of asthma was brought to the emergency room because of difficulty breathing that been going on for the last 3 days progressively getting worse. He says he has use his home rescue medication which minimal improvement. Patient denies any productive cough. No fever or chills reported no chest pain or palpitation noted. No other modifying or associated factors reported. In the emergency room patient is found to have acute asthma exacerbation. Chest x-ray shows no acute finding 11/05: Patient seen and seen showing remarkable improvement. Will adjust steroids and continue IMCU stay at this time. Discussed with case manager we will try on BiPAP again tonight and if continues to improve with then transition upstairs to the medical floor with anticipation for discharge in a day or 2 following that. 11/06: Continue supportive care, patient is on HFNC at 65%, continue IMCU stay, continue high dose steroids and wean as tolerated. 11/07: Patient seen and examined, clinically showing some improvement. Continue High flow Nasal Cannula, Continue steroids and further direction with the Ammonia Nitrate Operator. - Patient Problems (1) Acute asthma exacerbation Current Visit: Yes Status: Acute Plan to address problem: Transferred patient to [facility] for further evaluation considering severe hypoxic respiratory failure Adjusted Solumedrol to 80mg IV Q6HR Consulted Pulmonary for further management Oxygen by nasal cannula mixer operator hot metal pulmonate. DuoNeb nebulizer every 4 hours. Albuterol via nebulizer every 4 hours as needed. Add LABA, Singular 10 mg p.o. daily. Blood cultures sputum culture. Follow the CT scan of the chest. (2) Hypertension Current Visit: Yes Status: Acute Plan to address problem: Hydralazine 10 mg IV every 6 hours as needed. We will continue the home medication (3)Acute Hypoxic Respiratory failure (4)DVT prophylaxis Current Visit: Yes Status: Acute Plan to address problem: Heparin 5000 units subcu every 12 hours for DVT prophylaxis. Pepcid 20 mg p.o. twice daily for GI prophylaxis. Patient is a full code Discussed with family cct 35 mins History Interval history: Patient seen and examined this morning , tolerated BiPAP last night, on NC this morning Hospitalist Physical - Physical exam Narrative exam: VITAL SIGNS: Reviewed. GENERAL: The patient appears normally developed, Vital signs as documented. HEAD: No signs of head trauma. EYES: Pupils are equal. Extraocular motions intact. EARS: Hearing grossly intact. MOUTH: Oropharynx is normal. NECK: No adenopathy, no JVD. CHEST: Chest with diminished with mild expiratory wheeze breath sounds bilaterally. improving air movement. No rales, or rhonchi. CARDIAC: Regular rate and rhythm. S1 and S2, without murmurs, gallops, or rubs. VASCULAR: No Edema. Peripheral pulses normal and equal in all extremities. ABDOMEN: Soft, non tender and non distended. No rebound or guarding, and no masses palpated. Bowel Sounds normal. MUSCULOSKELETAL: Good range of motion of all major joints. Extremities without clubbing, cyanosis or edema. NEUROLOGIC EXAM: Alert and oriented x 3 No focal sensory or strength deficits. Speech normal. Follows commands. PSYCHIATRIC: Mood normal. SKIN: detail exam as documented in skin assessment - Constitutional Vitals: Temp Pulse Resp BP Pulse Ox 97.6 F 53 L 15 104/64 95 11/06/21 23:32 11/07/21 06:00 11/07/21 06:00 11/07/21 06:00 11/07/21 06:00 General appearance: Present: no acute distress, well-nourished HEART Score - HEART Score Troponin: Troponin T < 0.010 ng/mL (0.00-0.029) 11/03/21 16:45 Results - Labs CBC & Chem 7: 11/06/21 05:28 11/06/21 05:28 Labs: Laboratory Last Values WBC 15.7 K/mm3 (4.5-11.0) H 11/06/21 05:28 RBC 4.97 M/mm3 (3.65-5.03) 11/06/21 05:28 Hgb 14.4 gm/dl (11.8-15.2) 11/06/21 05:28 Hct 44.6 % (35.5-45.6) 11/06/21 05:28 MCV 90 fl (84-94) 11/06/21 05:28 MCH 29 pg (28-32) 11/06/21 05:28 MCHC 32 % (32-34) 11/06/21 05:28 RDW 14.1 % (13.2-15.2) 11/06/21 05:28 Plt Count 230 K/mm3 (140-440) 11/06/21 05:28 Lymph % (Auto) 10.9 % (13.4-35.0) L 11/03/21 16:45 [place] % (Auto) 11.6 % (0.0-7.3) H 11/03/21 16:45 Eos % (Auto) 0.1 % (0.0-4.3) 11/03/21 16:45 Baso % (Auto) 0.5 % (0.0-1.8) 11/03/21 16:45 Lymph # (Auto) 1.7 K/mm3 (1.2-5.4) 11/03/21 16:45 [place] # (Auto) 1.8 K/mm3 (0.0-0.8) H 11/03/21 16:45 Eos # (Auto) 0.0 K/mm3 (0.0-0.4) 11/03/21 16:45 Baso # (Auto) 0.1 K/mm3 (0.0-0.1) 11/03/21 16:45 Add Manual Diff Complete 11/04/21 05:06 Total Counted 100 11/04/21 05:06 Seg Neutrophils % Stitch Marker 11/04/21 05:06 Seg Neuts % (Manual) 93.0 % (40.0-70.0) H 11/04/21 05:06 Band Neutrophils % 0 % 11/04/21 05:06 Lymphocytes % (Manual) 7.0 % (13.4-35.0) L 11/04/21 05:06 Reactive Lymphs % (Man) 0 % 11/04/21 05:06 Monocytes % (Manual) 0 % (0.0-7.3) 11/04/21 05:06 Eosinophils % (Manual) 0 % (0.0-4.3) 11/04/21 05:06 Basophils % (Manual) 0 % (0.0-1.8) 11/04/21 05:06 Metamyelocytes % 0 % 11/04/21 05:06 Myelocytes % 0 % 11/04/21 05:06 Promyelocytes % 0 % 11/04/21 05:06 Blast Cells % 0 % 11/04/21 05:06 Nucleated RBC % Not Reportable 11/04/21 05:06 Seg Neutrophils # 11.7 K/mm3 (1.8-7.7) H 11/03/21 16:45 Seg Neutrophils # Man 10.5 K/mm3 (1.8-7.7) H 11/04/21 05:06 Band Neutrophils # 0.0 K/mm3 11/04/21 05:06 Lymphocytes # (Manual) 0.8 K/mm3 (1.2-5.4) L 11/04/21 05:06 Abs React Lymphs (Man) 0.0 K/mm3 11/04/21 05:06 Monocytes # (Manual) 0.0 K/mm3 (0.0-0.8) 11/04/21 05:06 Eosinophils # (Manual) 0.0 K/mm3 (0.0-0.4) 11/04/21 05:06 Basophils # (Manual) 0.0 K/mm3 (0.0-0.1) 11/04/21 05:06 Metamyelocytes # 0.0 K/mm3 11/04/21 05:06 Myelocytes # 0.0 K/mm3 11/04/21 05:06 Promyelocytes # 0.0 K/mm3 11/04/21 05:06 Blast Cells # 0.0 K/mm3 11/04/21 05:06 WBC Morphology Not Reportable 11/04/21 05:06 Hypersegmented Neuts Not Reportable 11/04/21 05:06 Hyposegmented Neuts Not Reportable 11/04/21 05:06 Hypogranular Neuts Not Reportable 11/04/21 05:06 Smudge Cells Not Reportable 11/04/21 05:06 Toxic Granulation Not Reportable 11/04/21 05:06 Toxic Vacuolation Not Reportable 11/04/21 05:06 Dohle Bodies Not Reportable 11/04/21 05:06 Pelger-Huet Anomaly Not Reportable 11/04/21 05:06 Kenia Rods Not Reportable 11/04/21 05:06 Platelet Estimate Consistent w auto 11/04/21 05:06 Clumped Platelets Not Reportable 11/04/21 05:06 Plt Clumps, EDTA Not Reportable 11/04/21 05:06 Large Platelets Not Reportable 11/04/21 05:06 Giant Platelets Not Reportable 11/04/21 05:06 Platelet Satelliting Not Reportable 11/04/21 05:06 Plt Morphology Comment Not Reportable 11/04/21 05:06 RBC Morphology Normal 11/04/21 05:06 Dimorphic RBCs Not Reportable 11/04/21 05:06 Polychromasia Not Reportable 11/04/21 05:06 Hypochromasia Not Reportable 11/04/21 05:06 Poikilocytosis Not Reportable 11/04/21 05:06 Anisocytosis Not Reportable 11/04/21 05:06 Microcytosis Not Reportable 11/04/21 05:06 Macrocytosis Not Reportable 11/04/21 05:06 Spherocytes Not Reportable 11/04/21 05:06 Pappenheimer Bodies Not Reportable 11/04/21 05:06 Sickle Cells Not Reportable 11/04/21 05:06 Target Cells Not Reportable 11/04/21 05:06 Tear Drop Cells Not Reportable 11/04/21 05:06 Ovalocytes Not Reportable 11/04/21 05:06 Helmet Cells Not Reportable 11/04/21 05:06 Noe-[place] Bodies Not Reportable 11/04/21 05:06 [place] Rings Not Reportable 11/04/21 05:06 [place] Cells Not Reportable 11/04/21 05:06 Bite Cells Not Reportable 11/04/21 05:06 Crenated Cell Not Reportable 11/04/21 05:06 Elliptocytes Not Reportable 11/04/21 05:06 Acanthocytes (Spur) Not Reportable 11/04/21 05:06 Rouleaux Not Reportable 11/04/21 05:06 Hemoglobin C Crystals Not Reportable 11/04/21 05:06 Schistocytes Not Reportable 11/04/21 05:06 Malaria parasites Not Reportable 11/04/21 05:06 [place] Bodies Not Reportable 11/04/21 05:06 Hem Pathologist Commnt No 11/04/21 05:06 PT 13.9 Sec. (12.2-14.9) 11/03/21 16:45 INR 0.97 (0.87-1.13) 11/03/21 16:45 APTT 27.3 Sec. (24.2-36.6) 11/03/21 16:45 D-Dimer 286.27 ng/mlDDU (0-234) H 11/03/21 19:02 ABG pH 7.357 pH Units (7.350-7.450) 11/03/21 17:25 ABG pCO2 41.0 mm Hg 11/03/21 17:25 ABG pO2 161.9 mm Hg (80.0-90.0) H 11/03/21 17:25 ABG HCO3 22.5 mmol/L (20.0-26.0) 11/03/21 17:25 ABG O2 Saturation 98.9 % (95.0-99.0) 11/03/21 17:25 ABG O2 Content 23.5 (0.0-44) 11/03/21 17:25 ABG Base Excess -2.8 mmol/L (-2.0-3.0) L 11/03/21 17:25 ABG Hemoglobin 17.1 gm/dl (14.0-18.0) 11/03/21 17:25 ABG Carboxyhemoglobin 1.6 % (0.0-5.0) 11/03/21 17:25 ABG Methemoglobin 0.7 % (0.0-1.5) 11/03/21 17:25 Oxyhemoglobin 96.7 % (95.0-99.0) 11/03/21 17:25 FiO2 50 % 11/03/21 17:25 Sodium 134 mmol/L (137-145) L 11/06/21 05:28 Potassium 5.0 mmol/L (3.6-5.0) 11/06/21 05:28 Chloride 96.0 mmol/L (98-107) L 11/06/21 05:28 Carbon Dioxide 28 mmol/L (22-30) D 11/06/21 05:28 Anion Gap 15 mmol/L 11/06/21 05:28 BUN 34 mg/dL (9-20) H 11/06/21 05:28 Creatinine 0.7 mg/dL (0.8-1.3) L 11/06/21 05:28 Estimated GFR > 60 ml/min 11/06/21 05:28 BUN/Creatinine Ratio 49 % 11/06/21 05:28 Glucose 175 mg/dL (75-100) H 11/06/21 05:28 Lactic Acid 1.50 mmol/L (0.7-2.0) 11/04/21 05:06 Calcium 9.1 mg/dL (8.4-10.2) 11/06/21 05:28 Total Bilirubin 0.40 mg/dL (0.1-1.2) 11/06/21 05:28 AST 18 units/L (5-40) 11/06/21 05:28 ALT 23 units/L (7-56) 11/06/21 05:28 Alkaline Phosphatase 58 units/L (35-129) 11/06/21 05:28 Troponin T < 0.010 ng/mL (0.00-0.029) 11/03/21 16:45 Total Protein 6.9 g/dL (6.3-8.2) 11/06/21 05:28 Albumin 3.8 g/dL (3.9-5) L 11/06/21 05:28 Albumin/Globulin Ratio 1.2 % 11/06/21 05:28 SARS-CoV-2 (PCR) Negative (Negative) 11/04/21 14:15 Katz/IV: Voiding Method Urinal Active Medications - Current Medications Current Medications: Generic Name Dose Route Start Last Admin Trade Name Freq PRN Reason Stop Dose Admin Acetaminophen 650 mg 11/03/21 21:53 Acetaminophen 325 Mg Tab PO Q4H PRN Pain MILD(1-3)/Fever >100.5/BOONE Albuterol 2.5 mg 11/03/21 21:53 11/06/21 08:06 Albuterol 2.5 Mg/3 Ml Nebu IH 2.5 mg Q3HRT PRN Administration Shortness Of Breath Albuterol/Ipratropium 1 ampul 11/04/21 02:00 11/07/21 04:29 Ipratropium/Albuterol Sulfate 3 Ml Ampul.Neb IH 1 ampul Q6HRT CHANA Administration Arformoterol Tartrate 15 mcg 11/04/21 20:00 11/06/21 20:01 Arformoterol 15 Mcg/2 Ml Nebu IH 15 mcg Q12HRT CHANA Administration Budesonide 0.5 mg 11/04/21 12:30 11/06/21 20:01 Budesonide 0.5 Mg/2 Ml Nebu IH 0.5 mg Q12HRT CHANA Administration Famotidine 20 mg 11/03/21 22:00 11/06/21 21:32 Famotidine 20 Mg Tab PO 20 mg BID CHANA Administration Heparin Sodium (Porcine) 5,000 unit 11/03/21 22:00 11/06/21 21:33 Heparin 5,000 Unit/1 Ml Vial SUB-Q 5,000 unit Q12HR CHANA Administration Methylprednisolone Sodium Succinate 80 mg 11/05/21 14:00 11/07/21 05:40 Methylprednisolone Sod Succinate 125 Mg/2 Ml Inj IV 80 mg Q8HR CHANA Administration Montelukast Sodium 10 mg 11/03/21 22:00 11/06/21 21:32 Montelukast 10 Mg Tab PO 10 mg QHS CHANA Administration Morphine Sulfate 2 mg 11/03/21 21:53 Morphine 2 Mg/1 Ml Inj IV Q4H PRN Pain, Moderate (4-6) Morphine Sulfate 4 mg 11/03/21 21:53 Morphine 4 Mg/1 Ml Inj IV Q4H PRN Pain , Severe (7-10) Ondansetron HCl 4 mg 11/03/21 21:53 Ondansetron 4 Mg/2 Ml Inj IV Q8H PRN Nausea And Vomiting Sodium Chloride 10 ml 11/03/21 22:00 11/06/21 21:32 Sodium Chloride 0.9% 10 Ml Flush Syringe IV 10 ml BID CHANA Administration Sodium Chloride 10 ml 11/03/21 21:53 Sodium Chloride 0.9% 10 Ml Flush Syringe IV PRN PRN LINE FLUSH
[2021-11-07] MEDS: ARFORMOTEROL 15 MCG/2 ML NEBU IH SCH ×2 (08:28→21:31)
[2021-11-07] MEDS: BUDESONIDE 0.5 MG/2 ML NEBU IH SCH ×2 (08:28→21:31)
[2021-11-07] MEDS: HEPARIN 5,000 UNIT/1 ML VIAL SUB-Q SCH ×2 (09:31→21:53)
[2021-11-07] MEDS: FAMOTIDINE 20 MG TAB PO SCH ×2 (09:31→21:53)
--- NOTE | 2021-11-07 10:25 | Progress Note ---
Assessment and Plan 66 y/o male with acute respiratory failure secondary to asthma exacerbation. 11/07/21: Increased steroids to q6, same strength given prolonged time on high flow. Continue scheduled nebs. Wean HFNC as tolerated for sats >88% and patient comfort. Needs to be OOB to chair at least daily if not more. COntinue bipap at night but may change to PRN once off HFNC 11/06/21: Continue to wean and use NIV at night. Continue all other therapies. 11/05/21: Bipap therapy QHS and prn. continue high dose steroids and scheduled nebs. Overall improving. 1. Bipap therapy now 2. May need to consider an hour long neb if bipap does not ease work of breathing 3. Added bid pulmicort 4. Continue scheduled duonebs. 5. Ok with 80q8, but may consider increasing frequency to q6 6. Guarded prognosis. Subjective Date of service: 11/07/21 Interval history: Not able to wean from HFNC yet. Overall looks much better. WOB (Work of Breathing) is definitely better. Objective Vital Signs - 12hr 11/06/21 11/06/21 11/06/21 23:00 23:12 23:32 Temperature 97.6 F Pulse Rate 56 L 64 Pulse Rate [ Anterior Bilateral Throughout] Pulse Rate [ From Monitor] Pulse Rate [ Posterior Bilateral Throughout] Respiratory 21 19 Rate Respiratory Rate [Anterior Bilateral Throughout] Respiratory Rate [Posterior Bilateral Throughout] Blood Pressure 113/66 113/66 O2 Sat by Pulse 98 98 Oximetry 11/07/21 11/07/21 11/07/21 00:00 01:00 02:00 Temperature Pulse Rate 56 L 55 L 52 L Pulse Rate [ Anterior Bilateral Throughout] Pulse Rate [ 55 L From Monitor] Pulse Rate [ Posterior Bilateral Throughout] Respiratory 21 18 17 Rate Respiratory Rate [Anterior Bilateral Throughout] Respiratory Rate [Posterior Bilateral Throughout] Blood Pressure 108/66 113/61 114/64 O2 Sat by Pulse 96 95 97 Oximetry 11/07/21 11/07/21 11/07/21 03:00 04:00 04:01 Temperature Pulse Rate 55 L 49 L 49 L Pulse Rate [ Anterior Bilateral Throughout] Pulse Rate [ 49 L From Monitor] Pulse Rate [ Posterior Bilateral Throughout] Respiratory 17 15 15 Rate Respiratory Rate [Anterior Bilateral Throughout] Respiratory Rate [Posterior Bilateral Throughout] Blood Pressure 105/67 112/63 O2 Sat by Pulse 96 97 97 Oximetry 11/07/21 11/07/21 11/07/21 04:29 04:31 05:00 Temperature Pulse Rate 59 L 57 L Pulse Rate [ 67 Anterior Bilateral Throughout] Pulse Rate [ From Monitor] Pulse Rate [ 55 L Posterior Bilateral Throughout] Respiratory 18 19 Rate Respiratory 18 Rate [Anterior Bilateral Throughout] Respiratory 18 Rate [Posterior Bilateral Throughout] Blood Pressure 112/63 103/59 O2 Sat by Pulse 97 96 Oximetry 11/07/21 11/07/21 11/07/21 06:00 07:00 08:00 Temperature Pulse Rate 53 L 51 L 54 L Pulse Rate [ Anterior Bilateral Throughout] Pulse Rate [ 54 L From Monitor] Pulse Rate [ 55 L Posterior Bilateral Throughout] Respiratory 15 17 17 Rate Respiratory Rate [Anterior Bilateral Throughout] Respiratory 14 Rate [Posterior Bilateral Throughout] Blood Pressure 104/64 114/65 O2 Sat by Pulse 95 95 98 Oximetry 11/07/21 11/07/21 11/07/21 08:01 09:01 10:00 Temperature Pulse Rate 63 63 62 Pulse Rate [ Anterior Bilateral Throughout] Pulse Rate [ From Monitor] Pulse Rate [ Posterior Bilateral Throughout] Respiratory 16 19 21 Rate Respiratory Rate [Anterior Bilateral Throughout] Respiratory Rate [Posterior Bilateral Throughout] Blood Pressure 120/82 117/91 113/71 O2 Sat by Pulse 96 96 91 Oximetry Constitutional: alert, appears uncomfortable Eyes: non-icteric Effort: very labored Ascultation: Bilateral: diminished breath sounds (hardly any air movement) CBC and BMP: 11/06/21 05:28 11/06/21 05:28 ABG, PT/INR, D-dimer: ABG ABG pH 7.357 pH Units (7.350-7.450) 11/03/21 17:25 ABG pCO2 41.0 mm Hg 11/03/21 17:25 ABG pO2 161.9 mm Hg (80.0-90.0) H 11/03/21 17:25 ABG O2 Saturation 98.9 % (95.0-99.0) 11/03/21 17:25 PT/INR, D-dimer PT 13.9 Sec. (12.2-14.9) 11/03/21 16:45 INR 0.97 (0.87-1.13) 11/03/21 16:45 D-Dimer 286.27 ng/mlDDU (0-234) H 11/03/21 19:02 Abnormal lab findings: Abnormal Labs 11/03/21 11/03/21 11/03/21 16:45 16:45 16:45 WBC 15.2 H RBC 5.68 H Hgb 16.8 H Hct 50.0 H Lymph % (Auto) 10.[address] [place] % (Auto) 11.[address] [place] # (Auto) 1.8 H Seg Neutrophils % 76.9 H Seg Neuts % (Manual) Lymphocytes % (Manual) Seg Neutrophils # 11.7 H Seg Neutrophils # Man Lymphocytes # (Manual) D-Dimer 296.55 H ABG pO2 ABG Base Excess Sodium 131 L Chloride 93.6 L Carbon Dioxide BUN 21 H Creatinine Glucose 137 H Lactic Acid Total Bilirubin 2.00 H Albumin 11/03/21 11/03/21 11/03/21 17:25 19:02 19:02 WBC RBC Hgb Hct Lymph % (Auto) [place] % (Auto) [place] # (Auto) Seg Neutrophils % Seg Neuts % (Manual) Lymphocytes % (Manual) Seg Neutrophils # Seg Neutrophils # Man Lymphocytes # (Manual) D-Dimer 286.27 H ABG pO2 161.9 H ABG Base Excess -2.8 L Sodium Chloride Carbon Dioxide BUN Creatinine Glucose Lactic Acid 3.40 H* Total Bilirubin Albumin 11/03/21 11/03/21 11/04/21 20:20 23:38 05:06 WBC 11.3 H RBC 5.31 H Hgb 15.8 H Hct 47.1 H Lymph % (Auto) [place] % (Auto) [place] # (Auto) Seg Neutrophils % Seg Neuts % (Manual) 93.0 H Lymphocytes % (Manual) 7.0 L Seg Neutrophils # Seg Neutrophils # Man 10.5 H Lymphocytes # (Manual) 0.8 L D-Dimer ABG pO2 ABG Base Excess Sodium Chloride Carbon Dioxide BUN Creatinine Glucose Lactic Acid 4.00 H* 3.40 H* Total Bilirubin Albumin 11/04/21 11/06/21 11/06/21 05:06 05:28 05:28 WBC 15.7 H RBC Hgb Hct Lymph % (Auto) [place] % (Auto) [place] # (Auto) Seg Neutrophils % Seg Neuts % (Manual) Lymphocytes % (Manual) Seg Neutrophils # Seg Neutrophils # Man Lymphocytes # (Manual) D-Dimer ABG pO2 ABG Base Excess Sodium 134 L 134 L Chloride 97.9 L 96.0 L Carbon Dioxide 21 L BUN 27 H 34 H Creatinine 0.7 L Glucose 178 H 175 H Lactic Acid Total Bilirubin Albumin 3.8 L
--- NOTE | 2021-11-07 11:41 | Electrocardiograph Report ---
[facility] Test Date: 2021-11-03 Test Time: 15:55:21 Pat Name: ANDREW FRANCO Department: Room: A459 Gender: M Pulverizer Operator: Cary OVALLE RN : [id number] Requested By: ROSA AVELAR Order Number: [id number] Reading MD: Cayetano Mckeon Measurements Intervals [place] Rate: 137 P: 84 [place]: 140 QRS: 5 QRSD: 81 T: 56 QT: 281 QTc: 426 Interpretive Statements Sinus tachycardia Aberrant complex LAE, consider biatrial enlargement Compared to ECG 10/24/2021 10:54:14 Aberrant conduction of supraventricular beat(s) now present Rate is faster. Electronically Signed On 11-07-2021 11:41:42 EDT by Cayetano Mckeon
[2021-11-07] MEDS: MONTELUKAST 10 MG TAB PO SCH (21:53)
[2021-11-08] MEDS: methylPREDNISolone Sod Succinate 125 MG/2 ML INJ IV SCH ×4 (01:14→18:38)
[2021-11-08] MEDS: IPRATROPIUM/ALBUTEROL SULFATE 3 ML AMPUL.NEB IH SCH ×4 (01:28→20:02)
[2021-11-08] MEDS: BUDESONIDE 0.5 MG/2 ML NEBU IH SCH ×2 (08:30→20:02)
[2021-11-08] MEDS: ARFORMOTEROL 15 MCG/2 ML NEBU IH SCH ×2 (08:30→20:01)
--- NOTE | 2021-11-08 10:55 | Progress Note ---
Assessment and Plan 66 y/o male with acute respiratory failure secondary to asthma exacerbation. 11/08/21: Continue steroids at q6 frequency, same dose. WEan FiO2 for sats >88%. Mobilize 11/07/21: Increased steroids to q6, same strength given prolonged time on high flow. Continue scheduled nebs. Wean HFNC as tolerated for sats >88% and patient comfort. Needs to be OOB to chair at least daily if not more. COntinue bipap at night but may change to PRN once off HFNC 11/06/21: Continue to wean and use NIV at night. Continue all other therapies. 11/05/21: Bipap therapy QHS and prn. continue high dose steroids and scheduled nebs. Overall improving. 1. Bipap therapy now 2. May need to consider an hour long neb if bipap does not ease work of doreen athing 3. Added bid pulmicort 4. Continue scheduled duonebs. 5. Ok with 80q8, but may consider increasing frequency to q6 6. Guarded prognosis. Subjective Date of service: 11/08/21 Interval history: No acute events. Off HFNC but still on venti mask Objective Vital Signs - 12hr 11/07/21 11/08/21 11/08/21 23:23 01:28 01:30 Temperature 97.5 F L Pulse Rate 70 Pulse Rate [ 64 Posterior Bilateral Throughout] Respiratory 18 Rate Respiratory 16 Rate [Posterior Bilateral Throughout] Blood Pressure 118/64 Blood Pressure [Right] O2 Sat by Pulse 96 98 Oximetry 11/08/21 11/08/21 11/08/21 03:08 08:00 08:30 Temperature 97.5 F L Pulse Rate 70 Pulse Rate [ 70 Posterior Bilateral Throughout] Respiratory 18 Rate Respiratory 18 Rate [Posterior Bilateral Throughout] Blood Pressure 116/64 Blood Pressure [Right] O2 Sat by Pulse 96 95 Oximetry 11/08/21 11/08/21 08:40 10:00 Temperature 97.5 F L Pulse Rate 80 70 Pulse Rate [ Posterior Bilateral Throughout] Respiratory 22 Rate Respiratory Rate [Posterior Bilateral Throughout] Blood Pressure Blood Pressure 124/76 [Right] O2 Sat by Pulse 96 Oximetry Constitutional: alert, appears uncomfortable Eyes: non-icteric Effort: very labored Ascultation: Bilateral: diminished breath sounds (hardly any air movement) CBC and BMP: 11/06/21 05:28 11/06/21 05:28 ABG, PT/INR, D-dimer: ABG ABG pH 7.357 pH Units (7.350-7.450) 11/03/21 17:25 ABG pCO2 41.0 mm Hg 11/03/21 17:25 ABG pO2 161.9 mm Hg (80.0-90.0) H 11/03/21 17:25 ABG O2 Saturation 98.9 % (95.0-99.0) 11/03/21 17:25 PT/INR, D-dimer PT 13.9 Sec. (12.2-14.9) 11/03/21 16:45 INR 0.97 (0.87-1.13) 11/03/21 16:45 D-Dimer 286.27 ng/mlDDU (0-234) H 11/03/21 19:02 Abnormal lab findings: Abnormal Labs 11/03/21 11/03/21 11/03/21 16:45 16:45 16:45 WBC 15.2 H RBC 5.68 H Hgb 16.8 H Hct 50.0 H Lymph % (Auto) 10.9 L [place] % (Auto) 11.6 H [place] # (Auto) 1.8 H Seg Neutrophils % 76.9 H Seg Neuts % (Manual) Lymphocytes % (Manual) Seg Neutrophils # 11.7 H Seg Neutrophils # Man Lymphocytes # (Manual) D-Dimer 296.55 H ABG pO2 ABG Base Excess Sodium 131 L Chloride 93.6 L Carbon Dioxide BUN 21 H Creatinine Glucose 137 H Lactic Acid Total Bilirubin 2.00 H Albumin 11/03/21 11/03/21 11/03/21 17:25 19:02 19:02 WBC RBC Hgb Hct Lymph % (Auto) [place] % (Auto) [place] # (Auto) Seg Neutrophils % Seg Neuts % (Manual) Lymphocytes % (Manual) Seg Neutrophils # Seg Neutrophils # Man Lymphocytes # (Manual) D-Dimer 286.27 H ABG pO2 161.9 H ABG Base Excess -2.8 L Sodium Chloride Carbon Dioxide BUN Creatinine Glucose Lactic Acid 3.40 H* Total Bilirubin Albumin 11/03/21 11/03/21 11/04/21 20:20 23:38 05:06 WBC 11.3 H RBC 5.31 H Hgb 15.8 H Hct 47.1 H Lymph % (Auto) [place] % (Auto) [place] # (Auto) Seg Neutrophils % Seg Neuts % (Manual) 93.0 H Lymphocytes % (Manual) 7.0 L Seg Neutrophils # Seg Neutrophils # Man 10.5 H Lymphocytes # (Manual) 0.8 L D-Dimer ABG pO2 ABG Base Excess Sodium Chloride Carbon Dioxide BUN Creatinine Glucose Lactic Acid 4.00 H* 3.40 H* Total Bilirubin Albumin 11/04/21 11/06/21 11/06/21 05:06 05:28 05:28 WBC 15.7 H RBC Hgb Hct Lymph % (Auto) [place] % (Auto) [place] # (Auto) Seg Neutrophils % Seg Neuts % (Manual) Lymphocytes % (Manual) Seg Neutrophils # Seg Neutrophils # Man Lymphocytes # (Manual) D-Dimer ABG pO2 ABG Base Excess Sodium 134 L 134 L Chloride 97.9 L 96.0 L Carbon Dioxide 21 L BUN 27 H 34 H Creatinine 0.7 L Glucose 178 H 175 H Lactic Acid Total Bilirubin Albumin 3.8 L
[2021-11-08] MEDS: FAMOTIDINE 20 MG TAB PO SCH ×2 (11:14→21:33)
[2021-11-08] MEDS: HEPARIN 5,000 UNIT/1 ML VIAL SUB-Q SCH ×2 (11:14→21:33)
--- NOTE | 2021-11-08 14:53 | Progress Note ---
Assessment and Plan 66-year-old male with history of asthma was brought to the emergency room because of difficulty breathing that been going on for the last 3 days progressively getting worse. He says he has use his home rescue medication which minimal improvement. Patient denies any productive cough. No fever or chills reported no chest pain or palpitation noted. No other modifying or associated factors reported. In the emergency room patient is found to have acute asthma exacerbation. Chest x-ray shows no acute finding 11/05: Patient seen and seen showing remarkable improvement. Will adjust steroids and continue IMCU stay at this time. Discussed with extermination supervisor we will try on BiPAP again tonight and if continues to improve with then transition upstairs to the medical floor with anticipation for discharge in a day or 2 following that. 11/06: Continue supportive care, patient is on HFNC at 65%, continue IMCU stay, continue high dose steroids and wean as tolerated. 11/07: Patient seen and examined, clinically showing some improvement. Continue High flow Nasal Cannula, Continue steroids and further direction with the [employer]. 11/07: Patient remains on 15 L Ventimask, continue nebulizer breathing treatment, discussed plan of care with and patient with an paraprofessional interpreter Who went off O2 as tolerated. Continue supportive care - Patient Problems (1) Acute asthma exacerbation Current Visit: Yes Status: Acute Plan to address problem: Transferred patient to [facility] for further evaluation considering severe hypoxic respiratory failure Adjusted Solumedrol to 80mg IV Q6HR Consulted Pulmonary for further management Oxygen by nasal cannula engine repairer service pulmonate. DuoNeb nebulizer every 4 hours. Albuterol via nebulizer every 4 hours as needed. Add LABA, Singular 10 mg p.o. daily. Blood cultures sputum culture. Follow the CT scan of the chest. (2) Hypertension Current Visit: Yes Status: Acute Plan to address problem: Hydralazine 10 mg IV every 6 hours as needed. We will continue the home medication (3)Acute Hypoxic Respiratory failure Due to acute asthma exacerbation, wean off O2 as tolerated (4)DVT prophylaxis Current Visit: Yes Status: Acute Plan to address problem: Heparin 5000 units subcu every 12 hours for DVT prophylaxis. Pepcid 20 mg p.o. twice daily for GI prophylaxis. Patient is a full code Discussed with family Subjective Date of service: 11/08/21 Interval history: Patient seen and examined. Medical records and medication list reviewed. No acute event overnight noted by the RN. Patient denies any chest pain but remains on 15 L Ventimask's. Patient is tolerating diet. Discussed plan of care at bedside with patient and with his along with paraprofessional interpreter. Objective - Exam Narrative Exam: GENERAL: well-developed elderly male lying on bed appeared to be in no discomfort. HEENT: Normocephalic. Atraumatic. No conjunctival congestion or icterus. Patient has moist mucous membranes. NECK: Supple. Trachea midline. CHEST/LUNGS: Diminished breath sound bilaterally, patient on 15 L Ventimask HEART/CARDIOVASCULAR: Regular in rate and rhythm. S1 and S2 positive. ABDOMEN: Abdomen is soft, nontender. Patient has normal bowel sounds. SKIN: There is no rash. Warm and dry. NEURO: No focal motor deficit. Follows command. MUSCULOSKELETAL: No joint effusion or tenderness. EXTRIMITY: No edema, no cyanosis or clubbing. PSYCH: Cooperative. - Constitutional Vitals: Vital Signs - 12hr 11/08/21 11/08/21 11/08/21 03:08 08:00 08:30 Temperature 97.5 F L Pulse Rate 70 Pulse Rate [ 70 Posterior Bilateral Throughout] Respiratory 18 Rate Respiratory 18 Rate [Posterior Bilateral Throughout] Blood Pressure 116/64 Blood Pressure [Right] O2 Sat by Pulse 96 95 Oximetry 11/08/21 11/08/21 11/08/21 08:40 10:00 11:24 Temperature 97.5 F L Pulse Rate 80 70 Pulse Rate [ Posterior Bilateral Throughout] Respiratory 22 Rate Respiratory Rate [Posterior Bilateral Throughout] Blood Pressure Blood Pressure 124/76 [Right] O2 Sat by Pulse 96 97 Oximetry 11/08/21 12:00 Temperature 98.4 F Pulse Rate 84 Pulse Rate [ Posterior Bilateral Throughout] Respiratory 20 Rate Respiratory Rate [Posterior Bilateral Throughout] Blood Pressure Blood Pressure 118/64 [Right] O2 Sat by Pulse 95 Oximetry - Labs CBC & Chem 7: 11/06/21 05:28 11/06/21 05:28 HEART Score - HEART Score Troponin: Troponin T < 0.010 ng/mL (0.00-0.029) 11/03/21 16:45
[2021-11-08] MEDS: MONTELUKAST 10 MG TAB PO SCH (21:33)
[2021-11-09] MEDS: methylPREDNISolone Sod Succinate 125 MG/2 ML INJ IV SCH ×2 (00:26→06:00)
[2021-11-09] MEDS: IPRATROPIUM/ALBUTEROL SULFATE 3 ML AMPUL.NEB IH SCH ×5 (03:47→21:22)
[2021-11-09] MEDS: ARFORMOTEROL 15 MCG/2 ML NEBU IH SCH ×2 (07:59→21:19)
[2021-11-09] MEDS: BUDESONIDE 0.5 MG/2 ML NEBU IH SCH ×2 (07:59→21:20)
[2021-11-09] MEDS ORDERED: ALBUTEROL 2.5 MG/3 ML NEBU IH PRN (09:00)
--- NOTE | 2021-11-09 10:01 | Progress Note ---
Assessment and Plan - Patient Problems (1) Asthma exacerbation Current Visit: Yes Status: Acute Qualifiers: Asthma severity: severe Asthma persistence: unspecified Qualified Code(s): J45.901 - Unspecified asthma with (acute) exacerbation (2) Hypertension Current Visit: Yes Status: Acute (3) Acute respiratory failure with hypoxia Current Visit: Yes Status: Acute Subjective Interval history: awake. no complaints Objective Vital Signs - 12hr 11/09/21 11/09/21 11/09/21 00:02 03:25 07:58 Temperature 97.8 F 97.7 F Pulse Rate 67 64 Pulse Rate [ Posterior Bilateral Throughout] Respiratory 18 18 Rate Respiratory Rate [Posterior Bilateral Throughout] Blood Pressure 133/75 133/79 O2 Sat by Pulse 96 97 97 Oximetry 11/09/21 11/09/21 11/09/21 07:59 08:05 08:13 Temperature 98.6 F Pulse Rate 62 Pulse Rate [ 61 Posterior Bilateral Throughout] Respiratory 16 Rate Respiratory 18 Rate [Posterior Bilateral Throughout] Blood Pressure 119/73 O2 Sat by Pulse 95 94 Oximetry 11/09/21 09:47 Temperature Pulse Rate 64 Pulse Rate [ Posterior Bilateral Throughout] Respiratory Rate Respiratory Rate [Posterior Bilateral Throughout] Blood Pressure O2 Sat by Pulse Oximetry Constitutional: no acute distress, alert Eyes: non-icteric ENT: oropharynx moist Effort: very labored Ascultation: Bilateral: rhonchi (rare) Cardiovascular: regular rate and rhythm Gastrointestinal: normoactive bowel sounds, soft, non-tender Extremities: no cyanosis Neurologic: normal mental status Psychiatric: mood appropriate CBC and BMP: 11/06/21 05:28 11/06/21 05:28 ABG, PT/INR, D-dimer: ABG ABG pH 7.357 pH Units (7.350-7.450) 11/03/21 17:25 ABG pCO2 41.0 mm Hg 11/03/21 17:25 ABG pO2 161.9 mm Hg (80.0-90.0) H 11/03/21 17:25 ABG O2 Saturation 98.9 % (95.0-99.0) 11/03/21 17:25 PT/INR, D-dimer PT 13.9 Sec. (12.2-14.9) 11/03/21 16:45 INR 0.97 (0.87-1.13) 11/03/21 16:45 D-Dimer 286.27 ng/mlDDU (0-234) H 11/03/21 19:02 Abnormal lab findings: Abnormal Labs 11/03/21 11/03/21 11/03/21 16:45 16:45 16:45 WBC 15.2 H RBC 5.68 H Hgb 16.8 H Hct 50.0 H Lymph % (Auto) 10.9 L [place] % (Auto) 11.6 H [place] # (Auto) 1.8 H Seg Neutrophils % 76.9 H Seg Neuts % (Manual) Lymphocytes % (Manual) Seg Neutrophils # 11.7 H Seg Neutrophils # Man Lymphocytes # (Manual) D-Dimer 296.55 H ABG pO2 ABG Base Excess Sodium 131 L Chloride 93.6 L Carbon Dioxide BUN 21 H Creatinine Glucose 137 H POC Glucose Lactic Acid Total Bilirubin 2.00 H Albumin 11/03/21 11/03/21 11/03/21 17:25 19:02 19:02 WBC RBC Hgb Hct Lymph % (Auto) [place] % (Auto) [place] # (Auto) Seg Neutrophils % Seg Neuts % (Manual) Lymphocytes % (Manual) Seg Neutrophils # Seg Neutrophils # Man Lymphocytes # (Manual) D-Dimer 286.27 H ABG pO2 161.9 H ABG Base Excess -2.8 L Sodium Chloride Carbon Dioxide BUN Creatinine Glucose POC Glucose Lactic Acid 3.40 H* Total Bilirubin Albumin 11/03/21 11/03/21 11/04/21 20:20 23:38 05:06 WBC 11.3 H RBC 5.31 H Hgb 15.8 H Hct 47.1 H Lymph % (Auto) [place] % (Auto) [place] # (Auto) Seg Neutrophils % Seg Neuts % (Manual) 93.0 H Lymphocytes % (Manual) 7.0 L Seg Neutrophils # Seg Neutrophils # Man 10.5 H Lymphocytes # (Manual) 0.8 L D-Dimer ABG pO2 ABG Base Excess Sodium Chloride Carbon Dioxide BUN Creatinine Glucose POC Glucose Lactic Acid 4.00 H* 3.40 H* Total Bilirubin Albumin 11/04/21 11/06/21 11/06/21 05:06 05:28 05:28 WBC 15.7 H RBC Hgb Hct Lymph % (Auto) [place] % (Auto) [place] # (Auto) Seg Neutrophils % Seg Neuts % (Manual) Lymphocytes % (Manual) Seg Neutrophils # Seg Neutrophils # Man Lymphocytes # (Manual) D-Dimer ABG pO2 ABG Base Excess Sodium 134 L 134 L Chloride 97.9 L 96.0 L Carbon Dioxide 21 L BUN 27 H 34 H Creatinine 0.7 L Glucose 178 H 175 H POC Glucose Lactic Acid Total Bilirubin Albumin 3.8 L 11/08/21 21:18 WBC RBC Hgb Hct Lymph % (Auto) [place] % (Auto) [place] # (Auto) Seg Neutrophils % Seg Neuts % (Manual) Lymphocytes % (Manual) Seg Neutrophils # Seg Neutrophils # Man Lymphocytes # (Manual) D-Dimer ABG pO2 ABG Base Excess Sodium Chloride Carbon Dioxide BUN Creatinine Glucose POC Glucose 267 H Lactic Acid Total Bilirubin Albumin
--- NOTE | 2021-11-09 10:56 | Progress Note ---
Assessment and Plan 66-year-old male with history of asthma was brought to the emergency room because of difficulty breathing that been going on for the last 3 days progressively getting worse. He says he has use his home rescue medication which minimal improvement. Patient denies any productive cough. No fever or chills reported no chest pain or palpitation noted. No other modifying or associated factors reported. In the emergency room patient is found to have acute asthma exacerbation. Chest x-ray shows no acute finding 11/05: Patient seen and seen showing remarkable improvement. Will adjust steroids and continue IMCU stay at this time. Discussed with conditioning coach we will try on BiPAP again tonight and if continues to improve with then transition upstairs to the medical floor with anticipation for discharge in a day or 2 following that. 11/06: Continue supportive care, patient is on HFNC at 65%, continue IMCU stay, continue high dose steroids and wean as tolerated. 11/07: Patient seen and examined, clinically showing some improvement. Continue High flow Nasal Cannula, Continue steroids and further direction with the [employer] Person. 11/07: Patient remains on 15 L Ventimask, continue nebulizer breathing treatment, discussed plan of care with and patient with an machine tank operator Who went off O2 as tolerated. Continue supportive care 11/08: Patient on 3-4L n/c O2. cont to wean off. cont supportive care. possible dc in the morning with home O2 if still requires supplemental O2 - Patient Problems (1) Acute asthma exacerbation Current Visit: Yes Status: Acute Plan to address problem: Transferred patient to [facility] for further evaluation considering severe hypoxic respiratory failure Adjusted Solumedrol to 80mg IV Q6HR Consulted Pulmonary for further management Oxygen by nasal cannula traffic safety administrator pulmonate. DuoNeb nebulizer every 4 hours. Albuterol via nebulizer every 4 hours as needed. Add LABA, Singular 10 mg p.o. daily. Blood cultures sputum culture. Follow the CT scan of the chest. (2) Hypertension Current Visit: Yes Status: Acute Plan to address problem: Hydralazine 10 mg IV every 6 hours as needed. We will continue the home medication (3)Acute Hypoxic Respiratory failure Due to acute asthma exacerbation, wean off O2 as tolerated (4)DVT prophylaxis Current Visit: Yes Status: Acute Plan to address problem: Heparin 5000 units subcu every 12 hours for DVT prophylaxis. Pepcid 20 mg p.o. twice daily for GI prophylaxis. Patient is a full code Discussed with family Subjective Date of service: 11/09/21 Interval history: Patient seen and examined. Medical records and medication list reviewed. No acute event overnight noted by the RN. Patient denies any chest pain but remains on 3-4 L n/c. Patient is tolerating diet. Discussed plan of care at bedside with patient along with machine tank operator. Objective - Exam Narrative Exam: GENERAL: well-developed elderly male lying on bed appeared to be in no discomfort. HEENT: Normocephalic. Atraumatic. No conjunctival congestion or icterus. Patient has moist mucous membranes. NECK: Supple. Trachea midline. CHEST/LUNGS: Diminished breath sound bilaterally, patient on 3-4 L n/c HEART/CARDIOVASCULAR: Regular in rate and rhythm. S1 and S2 positive. ABDOMEN: Abdomen is soft, nontender. Patient has normal bowel sounds. SKIN: There is no rash. Warm and dry. NEURO: No focal motor deficit. Follows command. MUSCULOSKELETAL: No joint effusion or tenderness. EXTRIMITY: No edema, no cyanosis or clubbing. PSYCH: Cooperative. - Constitutional Vitals: Vital Signs - 12hr 11/09/21 11/09/21 11/09/21 00:02 03:25 07:58 Temperature 97.8 F 97.7 F Pulse Rate 67 64 Pulse Rate [ Posterior Bilateral Throughout] Respiratory 18 18 Rate Respiratory Rate [Posterior Bilateral Throughout] Blood Pressure 133/75 133/79 O2 Sat by Pulse 96 97 97 Oximetry 11/09/21 11/09/21 11/09/21 07:59 08:05 08:13 Temperature 98.6 F Pulse Rate 62 Pulse Rate [ 61 Posterior Bilateral Throughout] Respiratory 16 Rate Respiratory 18 Rate [Posterior Bilateral Throughout] Blood Pressure 119/73 O2 Sat by Pulse 95 94 Oximetry 11/09/21 09:47 Temperature Pulse Rate 64 Pulse Rate [ Posterior Bilateral Throughout] Respiratory Rate Respiratory Rate [Posterior Bilateral Throughout] Blood Pressure O2 Sat by Pulse Oximetry - Labs CBC & Chem 7: 11/06/21 05:28 11/06/21 05:28 Labs: Abnormal lab results 11/08/21 Range/Units 21:18 POC Glucose 267 H (70-105) mg/dL HEART Score - HEART Score Troponin: Troponin T < 0.010 ng/mL (0.00-0.029) 11/03/21 16:45
[2021-11-09] MEDS: methylPREDNISolone Sod Succinate 40 MG/1 ML INJ IV SCH ×3 (12:05→22:16)
[2021-11-09] MEDS: HEPARIN 5,000 UNIT/1 ML VIAL SUB-Q SCH ×2 (12:05→22:16)
[2021-11-09] MEDS: FAMOTIDINE 20 MG TAB PO SCH ×2 (12:05→22:16)
[2021-11-09] MEDS ORDERED: methylPREDNISolone Sod Succinate 125 MG/2 ML INJ IV SCH (14:00)
[2021-11-09] MEDS: MONTELUKAST 10 MG TAB PO SCH (22:16)
[2021-11-10] MEDS: methylPREDNISolone Sod Succinate 40 MG/1 ML INJ IV SCH ×3 (05:26→22:25)
[2021-11-10] MEDS: ARFORMOTEROL 15 MCG/2 ML NEBU IH SCH ×2 (07:20→21:00)
[2021-11-10] MEDS: IPRATROPIUM/ALBUTEROL SULFATE 3 ML AMPUL.NEB IH SCH ×3 (07:20→20:59)
[2021-11-10] MEDS: BUDESONIDE 0.5 MG/2 ML NEBU IH SCH ×2 (07:20→20:10)
--- NOTE | 2021-11-10 10:39 | Progress Note ---
Assessment and Plan - Patient Problems (1) Asthma exacerbation Current Visit: Yes Status: Acute Qualifiers: Asthma severity: severe Asthma persistence: unspecified Qualified Code(s): J45.901 - Unspecified asthma with (acute) exacerbation (2) Hypertension Current Visit: Yes Status: Acute (3) Acute respiratory failure with hypoxia Current Visit: Yes Status: Acute Subjective Interval history: family at bedside no complaints on 3lpm Objective Vital Signs - 12hr 11/09/21 11/10/21 11/10/21 23:42 00:30 03:30 Temperature 97.6 F Pulse Rate 70 62 79 Pulse Rate [ Posterior Bilateral Throughout] Respiratory 16 20 14 Rate Respiratory Rate [Posterior Bilateral Throughout] Blood Pressure 125/83 O2 Sat by Pulse 100 96 98 Oximetry 11/10/21 11/10/21 11/10/21 04:27 07:19 07:20 Temperature 97.6 F Pulse Rate 63 Pulse Rate [ 60 Posterior Bilateral Throughout] Respiratory 20 Rate Respiratory 16 Rate [Posterior Bilateral Throughout] Blood Pressure 116/70 O2 Sat by Pulse 96 99 Oximetry 11/10/21 07:58 Temperature 97.9 F Pulse Rate 65 Pulse Rate [ Posterior Bilateral Throughout] Respiratory 16 Rate Respiratory Rate [Posterior Bilateral Throughout] Blood Pressure 108/61 O2 Sat by Pulse 94 Oximetry Constitutional: no acute distress, alert Eyes: non-icteric ENT: oropharynx moist Effort: very labored Ascultation: Bilateral: rhonchi (rare) Cardiovascular: regular rate and rhythm Gastrointestinal: normoactive bowel sounds, soft, non-tender Extremities: no cyanosis Neurologic: normal mental status Psychiatric: mood appropriate CBC and BMP: 11/06/21 05:28 11/06/21 05:28 ABG, PT/INR, D-dimer: ABG ABG pH 7.357 pH Units (7.350-7.450) 11/03/21 17:25 ABG pCO2 41.0 mm Hg 11/03/21 17:25 ABG pO2 161.9 mm Hg (80.0-90.0) H 11/03/21 17:25 ABG O2 Saturation 98.9 % (95.0-99.0) 11/03/21 17:25 PT/INR, D-dimer PT 13.9 Sec. (12.2-14.9) 11/03/21 16:45 INR 0.97 (0.87-1.13) 11/03/21 16:45 D-Dimer 286.27 ng/mlDDU (0-234) H 11/03/21 19:02 Abnormal lab findings: Abnormal Labs 11/03/21 11/03/21 11/03/21 16:45 16:45 16:45 WBC 15.2 H RBC 5.68 H Hgb 16.8 H Hct 50.0 H Lymph % (Auto) 10.9 L Brule % (Auto) 11.6 H Brule # (Auto) 1.8 H Seg Neutrophils % 76.9 H Seg Neuts % (Manual) Lymphocytes % (Manual) Seg Neutrophils # 11.7 H Seg Neutrophils # Man Lymphocytes # (Manual) D-Dimer 296.55 H ABG pO2 ABG Base Excess Sodium 131 L Chloride 93.6 L Carbon Dioxide BUN 21 H Creatinine Glucose 137 H POC Glucose Lactic Acid Total Bilirubin 2.00 H Albumin 11/03/21 11/03/21 11/03/21 17:25 19:02 19:02 WBC RBC Hgb Hct Lymph % (Auto) Brule % (Auto) Brule # (Auto) Seg Neutrophils % Seg Neuts % (Manual) Lymphocytes % (Manual) Seg Neutrophils # Seg Neutrophils # Man Lymphocytes # (Manual) D-Dimer 286.27 H ABG pO2 161.9 H ABG Base Excess -2.8 L Sodium Chloride Carbon Dioxide BUN Creatinine Glucose POC Glucose Lactic Acid 3.40 H* Total Bilirubin Albumin 11/03/21 11/03/21 11/04/21 20:20 23:38 05:06 WBC 11.3 H RBC 5.31 H Hgb 15.8 H Hct 47.1 H Lymph % (Auto) Brule % (Auto) Brule # (Auto) Seg Neutrophils % Seg Neuts % (Manual) 93.0 H Lymphocytes % (Manual) 7.0 L Seg Neutrophils # Seg Neutrophils # Man 10.5 H Lymphocytes # (Manual) 0.8 L D-Dimer ABG pO2 ABG Base Excess Sodium Chloride Carbon Dioxide BUN Creatinine Glucose POC Glucose Lactic Acid 4.00 H* 3.40 H* Total Bilirubin Albumin 11/04/21 11/06/21 11/06/21 05:06 05:28 05:28 WBC 15.7 H RBC Hgb Hct Lymph % (Auto) Brule % (Auto) Brule # (Auto) Seg Neutrophils % Seg Neuts % (Manual) Lymphocytes % (Manual) Seg Neutrophils # Seg Neutrophils # Man Lymphocytes # (Manual) D-Dimer ABG pO2 ABG Base Excess Sodium 134 L 134 L Chloride 97.9 L 96.0 L Carbon Dioxide 21 L BUN 27 H 34 H Creatinine 0.7 L Glucose 178 H 175 H POC Glucose Lactic Acid Total Bilirubin Albumin 3.8 L 11/08/21 21:18 WBC RBC Hgb Hct Lymph % (Auto) Brule % (Auto) Brule # (Auto) Seg Neutrophils % Seg Neuts % (Manual) Lymphocytes % (Manual) Seg Neutrophils # Seg Neutrophils # Man Lymphocytes # (Manual) D-Dimer ABG pO2 ABG Base Excess Sodium Chloride Carbon Dioxide BUN Creatinine Glucose POC Glucose 267 H Lactic Acid Total Bilirubin Albumin
[2021-11-10] MEDS: FAMOTIDINE 20 MG TAB PO SCH ×2 (10:52→22:25)
[2021-11-10] MEDS: HEPARIN 5,000 UNIT/1 ML VIAL SUB-Q SCH ×2 (10:53→22:29)
--- NOTE | 2021-11-10 11:52 | Discharge Summary ---
Providers - Providers Date of Admission: 11/03/21 21:53 Date of discharge: 11/10/21 Attending physician: LE VILLA 11/04/21 09:45 Consult to Physician [CONS] Routine Comment: Consulting Provider: SURAJ LING Physician Instructions: Reason For Exam: Hypoxic Respiratory failure Primary care physician: VINEGAR MAKER Hospitalization Condition: Serious Hospital course: 66-year-old male with history of asthma was brought to the emergency room because of difficulty breathing that been going on for the last 3 days p rogressively getting worse. He says he has use his home rescue medication which minimal improvement. Patient denies any productive cough. No fever or chills reported no chest pain or palpitation noted. No other modifying or associated factors reported. In the emergency room patient is found to have acute asthma exacerbation and admitted for further management. Chest x-ray shows no acute finding Patient was admitted to with scheduled nebs, iv abx, iv steroids and supplemental O2 to keep O2 sat at 94%. CXR showed no infiltrates. Patients symptom improved with medical management and assessment. Permanent. Patient was then discharged home in stable condition with outpt f/u. 11/05: Patient seen and seen showing remarkable improvement. Will adjust steroids and continue IMCU stay at this time. Discussed with truck dispatcher we will try on BiPAP again tonight and if continues to improve with then transition upstairs to the medical floor with anticipation for discharge in a day or 2 following that. 11/06: Continue supportive care, patient is on HFNC at 65%, continue IMCU stay, continue high dose steroids and wean as tolerated. 11/07: Patient seen and examined, clinically showing some improvement. Continue High flow Nasal Cannula, Continue steroids and further direction with the Managed Care Provider. 11/07: Patient remains on 15 L Ventimask, continue nebulizer breathing treatment, discussed plan of care with and patient with an change lead Who went off O2 as tolerated. Continue supportive care 11/08: Patient on 3-4L n/c O2. cont to wean off. cont supportive care. possible dc in the morning with home O2 if still requires supplemental O2 11/09: We will continue to wean off from O2, continue supportive care. Will evaluate for home O2 requirement 11/10: Patient requiring nasal cannula O2, assess for home O2 requirement and patient would need 2 L home oxygen to discharge with. Discharge order has been placed by patient and his trying to arrange wound for home O2 set up as they are uninsured. clothing manager notified. Patient will be discharged home when home O2 has been arranged. 11/11: Patient clinically stable. Discussed plan of care with the patient and patient with change lead. Waiting on home O2 arrangement. Patient was recommended to follow-up at [facility] in 1 week. Disposition: 01 HOME / SELF CARE / HOMELESS Final Discharge Diagnosis (Prints w/discharge instructions): -- Acute hypoxic respiratory failure. -- Acute asthma exacerbation. --Hypertension Time spent for discharge: 34 minutes Core Measure Documentation - Palliative Care Palliative Care/ Comfort Measures: Not Applicable - Core Measures Any of the following diagnoses?: none Exam - Physical Exam Narrative exam: GENERAL: well-developed elderly male lying on bed appeared to be in no discomfort. HEENT: Normocephalic. Atraumatic. No conjunctival congestion or icterus. Patient has moist mucous membranes. NECK: Supple. Trachea midline. CHEST/LUNGS: Diminished breath sound bilaterally, patient on 3-4 L n/c HEART/CARDIOVASCULAR: Regular in rate and rhythm. S1 and S2 positive. ABDOMEN: Abdomen is soft, nontender. Patient has normal bowel sounds. SKIN: There is no rash. Warm and dry. NEURO: No focal motor deficit. Follows command. MUSCULOSKELETAL: No joint effusion or tenderness. EXTRIMITY: No edema, no cyanosis or clubbing. PSYCH: Cooperative. - Constitutional Vitals: Temp Pulse Resp BP Pulse Ox 97.9 F 65 16 108/61 96 11/10/21 07:58 11/10/21 10:00 11/10/21 07:58 11/10/21 07:58 11/10/21 10:00 Plan Activity: advance as tolerated Weight Bearing Status: Weight Bear as Tolerated Diet: low fat, low salt Follow up with: PRIMARY MD JACLYN [Primary Care Provider] - 3-5 Days GILSON BISHOP MD [Staff Physician] - 7 Days Prescriptions: Montelukast [Singulair] 10 mg PO QHS #30 tablet Fluticasone/Salmeterol [Advair Diskus 250-50 mcg] 1 puff IH BID #1 bottle predniSONE [Deltasone] 50 mg PO QDAY 5 Days #5 tab Albuterol Mdi (or & Nicu Only) [ProAir HFA Inhaler] 2 puff IH QID PRN #8.5 gram PRN Reason: Shortness Of Breath
[2021-11-10] MEDS: MONTELUKAST 10 MG TAB PO SCH (22:25)
[2021-11-11] MEDS: methylPREDNISolone Sod Succinate 40 MG/1 ML INJ IV SCH ×2 (06:54→14:01)
[2021-11-11] MEDS: IPRATROPIUM/ALBUTEROL SULFATE 3 ML AMPUL.NEB IH SCH ×2 (07:17→14:24)
[2021-11-11] MEDS: BUDESONIDE 0.5 MG/2 ML NEBU IH SCH (07:17)
[2021-11-11] MEDS: ARFORMOTEROL 15 MCG/2 ML NEBU IH SCH (07:17)
[2021-11-11] MEDS: HEPARIN 5,000 UNIT/1 ML VIAL SUB-Q SCH (09:11)
[2021-11-11] MEDS: FAMOTIDINE 20 MG TAB PO SCH (09:11)
--- NOTE | 2021-11-11 14:10 | Progress Note ---
Assessment and Plan 66-year-old male with history of asthma was brought to the emergency room because of difficulty breathing that been going on for the last 3 days progressively getting worse. He says he has use his home rescue medication which minimal improvement. Patient denies any productive cough. No fever or chills reported no chest pain or palpitation noted. No other modifying or associated factors reported. In the emergency room patient is found to have acute asthma exacerbation and admitted for further management. Chest x-ray shows no acute finding 11/05: Patient seen and seen showing remarkable improvement. Will adjust steroids and continue IMCU stay at this time. Discussed with mainframe applications developer we will try on BiPAP again tonight and if continues to improve with then transition upstairs to the medical floor with anticipation for discharge in a day or 2 following that. 11/06: Continue supportive care, patient is on HFNC at 65%, continue IMCU stay, continue high dose steroids and wean as tolerated. 11/07: Patient seen and examined, clinically showing some improvement. Continue High flow Nasal Cannula, Continue steroids and further direction with the Financial Aid Advisor. 11/07: Patient remains on 15 L Ventimask, continue nebulizer breathing treatment, discussed plan of care with and patient with an oracle software engineer Who went off O2 as tolerated. Continue supportive care 11/08: Patient on 3-4L n/c O2. cont to wean off. cont supportive care. possible dc in the morning with home O2 if still requires supplemental O2 11/09: We will continue to wean off from O2, continue supportive care. Will evaluate for home O2 requirement 11/10: Patient requiring nasal cannula O2, assess for home O2 requirement and patient would need 2 L home oxygen to discharge with. Discharge order has been placed by patient and his trying to arrange wound for home O2 set up as they are uninsured. strategic communications manager notified. Patient will be discharged home when home O2 has been arranged. - Patient Problems (1) Acute asthma exacerbation Current Visit: Yes Status: Acute Plan to address problem: Transferred patient to [facility] for further evaluation considering severe hypoxic respiratory failure s/p Solumedrol to 80mg IV Q6HR Consulted Pulmonary for further management Oxygen by nasal cannula library historian pulmonate. DuoNeb nebulizer every 4 hours. Albuterol via nebulizer every 4 hours as needed. Add LABA, Singular 10 mg p.o. daily. Blood cultures sputum culture negative. CT scan of the chest without any PE. (2) Hypertension Current Visit: Yes Status: Acute Plan to address problem: Hydralazine 10 mg IV every 6 hours as needed. Continue to adjust medications as needed (3)Acute Hypoxic Respiratory failure Due to acute asthma exacerbation, wean off O2 as tolerated (4)DVT prophylaxis Current Visit: Yes Status: Acute Plan to address problem: Heparin 5000 units subcu every 12 hours for DVT prophylaxis. Pepcid 20 mg p.o. twice daily for GI prophylaxis. Patient is a full code Discussed with family Subjective Date of service: 11/10/21 Interval history: Patient seen and examined. Medical records and medication list reviewed. No acute event overnight noted by the RN. Patient denies any chest pain but remains on supplemental O2 with n/c. Patient is tolerating diet. Discussed plan of care at bedside with patient along with oracle software engineer. Objective - Exam Narrative Exam: GENERAL: well-developed elderly male lying on bed appeared to be in no discomfort. HEENT: Normocephalic. Atraumatic. No conjunctival congestion or icterus. Patient has moist mucous membranes. NECK: Supple. Trachea midline. CHEST/LUNGS: Diminished breath sound bilaterally, patient on supplemental O2 HEART/CARDIOVASCULAR: Regular in rate and rhythm. S1 and S2 positive. ABDOMEN: Abdomen is soft, nontender. Patient has normal bowel sounds. SKIN: There is no rash. Warm and dry. NEURO: No focal motor deficit. Follows command. MUSCULOSKELETAL: No joint effusion or tenderness. EXTRIMITY: No edema, no cyanosis or clubbing. PSYCH: Cooperative. - Constitutional Vitals: Vital Signs - 12hr 11/11/21 11/11/21 11/11/21 04:32 07:17 07:18 Temperature 97.3 F L Pulse Rate 72 Pulse Rate [ 83 Posterior Bilateral Throughout] Respiratory 18 Rate Respiratory 18 Rate [Posterior Bilateral Throughout] Blood Pressure 113/69 O2 Sat by Pulse 96 96 Oximetry 11/11/21 11/11/21 08:08 10:00 Temperature 97.5 F L Pulse Rate 79 73 Pulse Rate [ Posterior Bilateral Throughout] Respiratory 18 18 Rate Respiratory Rate [Posterior Bilateral Throughout] Blood Pressure 126/76 O2 Sat by Pulse 94 98 Oximetry - Labs CBC & Chem 7: 11/06/21 05:28 11/06/21 05:28 HEART Score - HEART Score Troponin: Troponin T < 0.010 ng/mL (0.00-0.029) 11/03/21 16:45
[2021-11-11 17:12] VITALS: BP 130/76
== END 2021-11-11 19:34 | disposition home or self-care (01) | DRG 189 ==
LOC: ED 15:15 → 4A 21:53 → IMCU 11-04 12:30 → 4A 11-07 11:35
PROVIDERS: ADMIT Hospitalist; ATTEND Internal Medicine
PROC: 4A033R1 Measurement of Arterial Saturation, Peripheral, Percutaneous Approach (ICD-10-PCS; principal; 2021-11-03)
PROC: 5A09357 Assistance with Respiratory Ventilation, Less than 24 Consecutive Hours, Continuous Positive Airway Pressure (ICD-10-PCS; 2021-11-04)
PROC: 5A09357 Assistance with Respiratory Ventilation, Less than 24 Consecutive Hours, Continuous Positive Airway Pressure (ICD-10-PCS; 2021-11-05)
PROC: 5A09357 Assistance with Respiratory Ventilation, Less than 24 Consecutive Hours, Continuous Positive Airway Pressure (ICD-10-PCS; 2021-11-06)
PROC: 5A09357 Assistance with Respiratory Ventilation, Less than 24 Consecutive Hours, Continuous Positive Airway Pressure (ICD-10-PCS; 2021-11-07)
PROC: 5A09357 Assistance with Respiratory Ventilation, Less than 24 Consecutive Hours, Continuous Positive Airway Pressure (ICD-10-PCS; 2021-11-09)
PROC: 5A09357 Assistance with Respiratory Ventilation, Less than 24 Consecutive Hours, Continuous Positive Airway Pressure (ICD-10-PCS; 2021-11-10)
DX: J96.01 Acute respiratory failure with hypoxia (principal); J45.901 Unspecified asthma with (acute) exacerbation; Z20.822 Contact with and (suspected) exposure to COVID-19; I10 Essential (primary) hypertension; Z79.899 Other long term (current) drug therapy; Z82.49 Family history of ischemic heart disease and other diseases of the circulatory system
CPT/HCPCS: 36415; 71045; 71275; 80048; 80053; 82140; 82803; 82962; 84484; 85007; 85025; 85027; 85379; 85610; 85730; 93005; 94640; 94644; 94660; 94760; G0378; J1644; J2060; J2920; J2930; J3475; J7030; Q9967; U0003